=== PATIENT | female | born 1975 | race Caucasian/White ===

== ENCOUNTER 2020-08-02 07:27 | Outpatient (REF) | payer BC, SELFPAY | END 2020-08-02 07:28 | disposition home or self-care (01) | LOC: HO.WFDLDS 07:27 | PROVIDERS: Visit Provider Internal Medicine | DX: Z20.828 Contact with and (suspected) exposure to other viral communicable diseases (principal) | CPT/HCPCS: U0003 ==

== ENCOUNTER 2022-03-08 07:12 | Outpatient (REF) | payer BC, SELFPAY ==
[2022-03-08 11:42] LABS: Hematocrit 39.2 % (37.0-47.0); Hemoglobin 14.1 g/dl (12.0-16.0); Mean Corpuscular Hemoglobin 31.4 pg (27.0-33.0); Mean Corpuscular Volume 87.3 fL (80.0-98.0); Platelet Count 314 X10*3/uL (160-400); Red Blood Count 4.49 X10*6/uL (4.20-5.50); Red Cell Distribution Width 11.9 % (11.0-16.0); White Blood Count 6.1 X10*3/uL (4.8-10.8)
[2022-03-08 12:15] LABS: TSH reflex Free T4 0.98 uIU/mL (0.32-4.0)
[2022-03-08 12:28] LABS: Alanine Aminotransferase 13 U/L (0-31); Albumin Level 4.6 g/dL (3.5-5.0); Alkaline Phosphatase 49 U/L (39-117); Anion Gap 11 (12-20); Aspartate Amino Transferase 16 U/L (5-31); Bilirubin Total 0.8 mg/dL (0.0-1.0); Blood Urea Nitrogen 13 mg/dL (9-16); Carbon Dioxide 23 mmol/L (22-29); Chloride 108 mmol/L (96-108); Cholesterol 158 mg/dL; Estimated Glomerular Filt Rate > 60; Glucose Fasting 92 mg/dL (60-99); HDL Cholesterol 32 mg/dL; LDL Cholesterol Calculated 82 mg/dl; Potassium 3.8 mmol/L (3.3-5.1); Sodium 138 mmol/L (135-145); Total Protein 7.2 g/dL (6.5-8.0); Triglycerides 223 mg/dL
== END 2022-03-08 07:13 | disposition home or self-care (01) ==
LOC: HO.WFDLDS 07:12
PROVIDERS: Visit Provider Hospitalist
DX: Z00.00 Encounter for general adult medical examination without abnormal findings (principal)
CPT/HCPCS: 36415; 80053; 80061; 84443; 85027

== ENCOUNTER 2022-03-15 11:10 | Outpatient (REF) | payer BC, SELFPAY ==
[2022-03-15 13:48] LABS: C Reactive Protein 0.12 mg/dL (< or = 0.50)
[2022-03-15 14:08] LABS: Erythrocyte Sedimentation Rate 3 MM/HR (0-20)
[2022-03-21 14:52] LABS: Endomysial IgA Antibody Negative (Negative)
== END 2022-03-15 11:11 | disposition home or self-care (01) ==
LOC: HO.WFDLDS 11:10
PROVIDERS: Visit Provider Physician Assistant
DX: K52.9 Noninfective gastroenteritis and colitis, unspecified (principal)
CPT/HCPCS: 36415; 85652; 86140; 86231

== ENCOUNTER 2022-03-17 09:19 | Outpatient (REF) | payer BC, SELFPAY ==
[2022-03-17 13:13] LABS: CDiff Gene PCR NEGATIVE (Negative)
[2022-03-24 19:36] LABS: Fecal Fat Qualitative NORMAL (NORMAL)
[2022-03-24 21:56] LABS: Calprotectin, Fecal 47 mcg/g
== END 2022-03-17 09:20 | disposition home or self-care (01) ==
LOC: HO.WFDLNP 09:19
PROVIDERS: Visit Provider Physician Assistant
DX: R10.9 Unspecified abdominal pain (principal); K52.9 Noninfective gastroenteritis and colitis, unspecified
CPT/HCPCS: 82705; 83993; 87177; 87209; 87493

== ENCOUNTER 2022-06-12 11:22 | Outpatient (REF) | payer BC, SELFPAY ==
[2022-06-12 14:12] LABS: Alanine Aminotransferase 17 U/L (0-31); Albumin Level 4.4 g/dL (3.5-5.0); Alkaline Phosphatase 57 U/L (39-117); Amylase 62 U/L (28-100); Aspartate Amino Transferase 17 U/L (5-31); Bilirubin Direct 0.2 mg/dL (0.0-0.5); Bilirubin Total 0.5 mg/dL (0.0-1.0); Lipase 25 U/L (8-78)
== END 2022-06-12 11:23 | disposition home or self-care (01) ==
LOC: HO.WFDLDS 11:22
PROVIDERS: Visit Provider Hospitalist
DX: R10.11 Right upper quadrant pain (principal)
CPT/HCPCS: 36415; 80076; 82150; 83690

== ENCOUNTER 2022-06-19 10:19 | Day surgery (SDC) | payer BC, SELFPAY ==
--- NOTE | 2022-06-16 13:14 | HO.ANESPROP2 ---
HPI - Anesthesia Eval Consult details Narrative: 46yo F for Upper Endoscopy and Colonoscopy PMFSH Active Problems Active Problems: All Active Problems (Updated 06/12/22 @ 10:59 by Joyce Thompson NP) Right upper quadrant abdominal pain (Acute) High triglycerides (Acute) Abdominal pain (Acute) Chronic diarrhea (Acute) Normal physical exam (Acute) Family History Family History Other Mental health disorder Substance abuse Surgical History Surgical History H/O nasal septoplasty Social History Social History Housing: House Patient Tobacco Use Status: Former Tobacco user Quit Date: 10 years ago e-Cigarette/Vaping Use: Never Used Second Hand Smoke Exposure: No Use of substances other than those prescribed or required for medical reasons: No Are you DNR?: No Advance Directives: No Advance Directives Information Provided: Yes Patient : No service: No Current occupational status: employed Current occupational exposures/hazards: No Cognitive needs: No Hearing needs: No Vision needs: No Meds Allergies Allergy/AdvReac Type Severity Reaction Status Date / Time dicyclomine AdvReac Intermediate Blurry Verified 06/12/22 10:48 Vision Exam Exam Date and Time: June 16, 2022 1314 Pertinent Lab Results Pertinent Lab Results: Laboratory Tests 03/08/22 03/08/22 07:20 07:20 WBC 6.1 Hgb 14.1 Hct 39.2 Plt Count 314 Sodium 138 Potassium 3.8 Chloride 108 Carbon Dioxide 23 BUN 13 Creatinine 0.83 Assessment and Plan Assessment Anesthesia Assessment: Chart Reviewed
[2022-06-19 10:23] VITALS: BMI 24.5
[2022-06-19 10:34] VITALS: BP 108/70; PULSE 79; RESP 18; TEMP 36.6; O2SAT 100
--- NOTE | 2022-06-19 10:44 | MHC.SHP ---
Pre-Procedural Eval Section A Date of Service: 06/19/22 The patient is an INPATIENT: No The History & Physical has been completed within 30 days and I have reviewed it.: No Section B Chief Complaint: Noninfective gastroenteritis and colitis, unspecif Details of Present Illness: Colon cancer screening, Chronic diarrhea, nausea Relevant Family History (Specify if Yes): No Relevant Social History: Tobacco Use (Formal smoker) Present Medications: see Short Stay Collaborative assessment Medical History: Significant History (Hypertriglyceridemia, abdominal pain) History of Previous Operations: Relevant previous surgery/procedure and date(s) (H/O nasal septoplasty) Allergies: Allergies Allergy/AdvReac Type Severity Reaction Status Date / Time dicyclomine AdvReac Intermediate Blurry Verified 06/12/22 10:48 Vision Review of Systems Sugical H&P ROS: Negative: Constitution, Cardiovascular and Respiratory and Yes, Specify: Gastrointestinal (Chronic diarrhea) Exam Surgical H&P Exam: Normal: Heart, Normal: Lungs, Normal: Extremities and Normal: Abdomen Plan Diagnosis/Plan: Unchanged I have reviewed the history and physical and performed a pertinent physical examination on my patient. No changes have occurred unless specified.
--- NOTE | 2022-06-19 10:45 | P.BOP_ITS ---
Brief Operative Note Date of Service: 06/19/22 Pre-op diagnosis: Colon cancer screen, abdominal pain, chronic diarrhea, nausea Post-op diagnosis: other (Gastritis, polyp duodenal bulb, colon polyps, diverticulosis, hemorrhoids) Procedure: FLEXIBLE TRANSORAL UPPER GASTROINTESTINAL ENDOSCOPY WITH BIOPSIES AND SNARE POLYPECTOMY AND COLONOSCOPY TILL CECUM WITH BIOPSIES AND SNARE POLYPECTOMY UPPER ENDOSCOPY Consent: Indications for the procedure and potential complications of bleeding, perforation, reaction to medications and missed diagnosis were discussed with the patient and informed consent was obtained. Instrument: Olympus GIF H 190 mid size upper endoscope Monitoring: Vital signs and clinical assessment, continuous EKG monitoring, Pulse oximetry, Carbon Dioxide monitoring and blood pressure monitoring were done throughout the procedure. Procedure: The patient was placed in the left lateral decubitis position and pre-procedure medications were administered and a bite block was placed. The endoscope was inserted into the mouth and advanced under direct vision to the third part of duodenum. A careful inspection was made as the upper endoscope was withdrawn including a retroflexed examination of the proximal stomach; Findings and interventions are described below. Findings: Larynx: Normal Esophagus: GE junction at 36 cms. No esophagitis or Dumont's. Stomach: Moderate diffuse gastric erythema with a few chronic appearing antral erosions. Biopsies were obtained from the gastric body and antrum. Grade 2 flap valve on retroflexed examination of the cardia. Duodenum: A 10 - 12 mm adenomatous appearing polyp in the apex of the bulb - removed with a hot snare. Normal descending duodenum - biopsied to check for celiac sprue. Intervention: Biopsies as noted above COLONOSCOPY PROCEDURE NOTE Consent: Indications for the procedure and potential complications of bleeding, perforation, reaction to medications and missed diagnosis were discussed with the patient and informed consent was obtained. Instrument: Olympus PCF H 190 L variable stiffness pediatric colonoscope Monitoring: Vital signs and clinical assessment, intermittent blood pressure monitoring, continuous EKG monitoring, Pulse oximetry and Carbon Dioxide monitoring were done throughout the procedure. Colon withdrawl time was 20 minutes. Procedure: The patient was placed in the left lateral decubitis position and pre-procedure medications were administered. After a digital rectal examination of the ano-rectum, the video colonoscope was inserted into the rectum and advanced through the colon to the cecum. The colonoscope was slowly withdrawn in a retrograde panoramic fashion and the colon mucosa was carefully examined including a retroflexed view of the rectum. Findings and interventions are described below. Procedure Difficulty: : LLQ pressure applied to intubate the cecum Findings: Terminal Ileum: Multiple attempts to intubate the terminal ileum were unsuccessful Cecum: Normal Ascending Colon: Normal Transverse Colon: Normal Descending Colon: Normal Sigmoid Colon: Moderate diverticulosis Rectum: Two 12 to 15 mm sessile polyps at 10 to 12 cms removed with a hot snare. Ano-rectum: Moderate internal hemorrhoids Colon preparation: Good after copious irrigation and fair in the cecum due to presence of undigested vegetable matter Impression and Post Procedure Diagnosis: Endoscopy Findings: STOMACH: Moderate diffuse gastric erythema with a few chronic appearing antral erosions. Biopsies were obtained from the gastric body and antrum. DUODENUM: A 10 - 12 mm adenomatous appearing polyp in the apex of the bulb - removed with a hot snare. Normal descending duodenum - biopsied to check for celiac sprue. Colonoscopy Findings: Two medium sized polyps removed Moderate diverticulosis seen in the sigmoid colon Moderate hemorrhoids on retroflexed exam. Plan: Await pathology results Patient to schedule a FU appointment in the GI Clinic with MOJGAN Donovan to discuss biopsy results. Repeat Colonoscopy interval based on path results - in 3 years if polyps are adenomatous and 10 years if polyps are hyperplastic. Above findings were reviewed with the patient and Gastritis, colon polyps and diverticulosis handouts were given in the discharge area Surgeon: Ian Ames MD Anesthesia: MAC (Dr Perez) Was an Bar Host/Hostess used for this Procedure?: No Bar Host/Hostess: Delicia Horta Estimated blood loss (mL): 0 Pathology: other (A. small bowel bxs, R/O celiac disease B. duodenal bulb nodule C. gastric antrum bxs, R/O H. pylori D. gastric body bxs E. right colon random bxs, R/O microscopic colitis F. l) Condition: stable Disposition: PACU
[2022-06-19 10:55] LABS: UPreg QC Valid YES; Urine Pregnancy NEGATIVE (NEGATIVE)
--- NOTE | 2022-06-19 10:56 | W.PM.OPN ---
Operative Note Operative Note Date of Service: 06/19/22 Narrative: Pre-op diagnosis: Colon cancer screen, abdominal pain, chronic diarrhea, nausea Post-op diagnosis:?other (Gastritis, polyp duodenal bulb, colon polyps, diverticulosis, hemorrhoids) Procedure: FLEXIBLE TRANSORAL UPPER GASTROINTESTINAL ENDOSCOPY WITH BIOPSIES AND SNARE POLYPECTOMY AND COLONOSCOPY TILL CECUM WITH BIOPSIES AND SNARE POLYPECTOMY UPPER ENDOSCOPY Consent:?Indications for the procedure and potential complications of bleeding, perforation, reaction to medications and missed diagnosis were discussed with the patient and informed consent was obtained. Instrument:?Olympus GIF H 190 mid size upper endoscope Monitoring: Vital signs and clinical assessment, continuous EKG monitoring, Pulse oximetry, Carbon Dioxide monitoring and blood pressure monitoring were done throughout the procedure. Procedure:?The patient was placed in the left lateral decubitis position and pre-procedure medications were administered and a bite block was placed. The endoscope was inserted into the mouth and advanced under direct vision to the third part of duodenum. A careful inspection was made as the upper endoscope was withdrawn including a retroflexed examination of the proximal stomach; Findings and interventions are described below. Findings: Larynx:? Normal Esophagus:?GE junction at 36 cms. No esophagitis or Dumont's. Stomach:?Moderate diffuse gastric erythema with a few chronic appearing antral erosions. Biopsies were obtained from the gastric body and antrum. Grade 2 flap valve on retroflexed examination of the cardia. Duodenum:?A 10 - 12 mm adenomatous appearing polyp in the apex of the bulb - removed with a hot snare. Normal descending duodenum - biopsied to check for celiac sprue. Intervention:?Biopsies as noted above COLONOSCOPY PROCEDURE NOTE Consent:?Indications for the procedure and potential complications of bleeding, perforation, reaction to medications and missed diagnosis were discussed with the patient and informed consent was obtained. Instrument:?Olympus PCF H 190 L variable stiffness pediatric colonoscope Monitoring:?Vital signs and clinical assessment, intermittent blood pressure monitoring, continuous EKG monitoring, Pulse oximetry and Carbon Dioxide monitoring were done throughout the procedure. Colon withdrawl time was 20 minutes. Procedure:?The patient was placed in the left lateral decubitis position and pre-procedure medications were administered. After a digital rectal examination of the ano-rectum, the video colonoscope was inserted into the rectum and advanced through the colon to the cecum. The colonoscope was slowly withdrawn in a retrograde panoramic fashion and the colon mucosa was carefully examined including a retroflexed view of the rectum. Findings and interventions are described below. Procedure Difficulty:?:? LLQ pressure applied to intubate the cecum Findings: Terminal Ileum:? Multiple attempts to intubate the terminal ileum were unsuccessful Cecum:? Normal Ascending Colon:??Normal Transverse Colon:??Normal Descending Colon:? Normal Sigmoid Colon:??Moderate diverticulosis Rectum:??Two 12 to 15 mm sessile polyps at 10 to 12 cms removed with a hot snare. Ano-rectum:??Moderate internal hemorrhoids Colon preparation:? Good after copious irrigation and fair in the cecum due to presence of undigested vegetable matter Impression and Post Procedure Diagnosis: Endoscopy Findings: STOMACH: Moderate diffuse gastric erythema with a few chronic appearing antral erosions. Biopsies were obtained from the gastric body and antrum.? DUODENUM: A 10 - 12 mm adenomatous appearing polyp in the apex of the bulb - removed with a hot snare. Normal descending duodenum - biopsied to check for celiac sprue. Colonoscopy Findings: Two medium sized polyps removed Moderate diverticulosis seen in the sigmoid colon Moderate hemorrhoids on retroflexed exam. Plan: Await pathology results Patient to schedule a FU appointment in the GI Clinic with MOJGAN Donovan to discuss biopsy results. Repeat Colonoscopy interval based on path results - in 3 years if polyps are adenomatous and 10 years if polyps are hyperplastic. Above findings were reviewed with the patient and Gastritis, colon polyps and diverticulosis handouts were given in the discharge area Surgeon: Ian Ames MD Anesthesia:?MAC (Dr Perez) Was an [employer] used for this Procedure?:?No [employer]:?Delicia Horta Estimated blood loss (mL):?0 Pathology:?other (A. small bowel bxs, R/O celiac disease? B. duodenal bulb nodule? C. gastric antrum bxs, R/O H. pylori? D. gastric body bxs? E. right colon random bxs, R/O microscopic colitis? F. l) Condition:?stable Disposition:?PACU
[2022-06-19] MEDS: Lactated Ringers 1,000 ML 100 ML IVCONT (11:00)
--- NOTE | 2022-06-19 11:11 | P.CONAN_ITS ---
REPLACED BY [facility] Active Problems Active Problems: All Active Problems (Updated 06/12/22 @ 10:59 by Joyce Thompson NP) Right upper quadrant abdominal pain (Acute) High triglycerides (Acute) Abdominal pain (Acute) Chronic diarrhea (Acute) Normal physical exam (Acute) Past Medical History Functional capacity: independent ambulation Patient : No Family History Family History Other Mental health disorder Substance abuse Family history of problems with anesthesia: No Surgical History Surgical History H/O nasal septoplasty Social History Social History Housing: House Patient Tobacco Use Status: Former Tobacco user Quit Date: 10 years ago e-Cigarette/Vaping Use: Never Used Second Hand Smoke Exposure: No Use of substances other than those prescribed or required for medical reasons: No Are you DNR?: No Advance Directives: No Advance Directives Information Provided: Yes service: No Current occupational status: employed Current occupational exposures/hazards: No Cognitive needs: No Hearing needs: No Vision needs: No Meds Allergies Allergy/AdvReac Type Severity Reaction Status Date / Time dicyclomine AdvReac Intermediate Blurry Verified 06/12/22 10:48 Vision Active Medications: Current Medications Lactated Ringer's (Lr) 1,000 mls @ 100 mls/hr IVCONT .Q10H CHENG Last Admin: 06/19/22 11:00 Dose: 100 mls/hr Exam Exam Date and Time: June 19, 2022 1111 Height,Weight and Vital Signs: Height 5 ft 2 in Weight 60.781 kg Last Vital Signs Temp 97.8 F 06/19/22 10:34 Pulse 79 06/19/22 10:34 Resp 18 06/19/22 10:34 BP 108/70 06/19/22 10:34 Pulse Ox 100 06/19/22 10:34 O2 Del Method 06/19/22 10:34 Pertinent Lab Results Pertinent Lab Results: Laboratory Tests 06/19/22 10:15 Urine Test NEGATIVE Assessment and Plan Final Anesthetic Review Family History of Problems with Anesthesia: No ASA Class: II Final Preanesthetic Review: No Changes in Pt Med Stat, Meds/Allgs Chart Reviewed, Consent Obtained/Reviewed and Anes Risks/Benef Reviewed Patient Risk: Low Procedure Risk: Low Anesthetic Plan Anesthetic Plan: MAC: Disposition: Standard PACU
[2022-06-19 12:15] VITALS: BP 75/47; PULSE 69; RESP 16; TEMP 36.3; O2SAT 100
[2022-06-19 12:30] VITALS: BP 91/58; PULSE 64; RESP 16; O2SAT 100
[2022-06-19 12:45] VITALS: BP 108/69; PULSE 57; RESP 16; TEMP 36.2; O2SAT 100
--- NOTE | 2022-06-19 13:17 | HO.POSTANES ---
Post Anesthesia Evaluation Post Anesthesia Evaluation Vital Signs: Vital Signs Temp Pulse Resp BP Pulse Ox O2 Del Method 06/19/22 12:45 97.1 F 57 16 108/69 100 Room Air 06/19/22 12:30 64 16 91/58 L 100 Room Air 06/19/22 12:15 97.3 F 69 16 75/47 L 100 Room Air 06/19/22 10:34 97.8 F 79 18 108/70 100 Room Air Anesthesia: Monitored Mental Status: Awake Pain Control: Satisfactory Nausea/Vomiting: None Hydration: Adequate Anesthesia-Related Issues: No Anes. Related Issues
== END 2022-06-19 13:40 | disposition home or self-care (01) ==
PROVIDERS: Nurse Practitioner; PCP Hospitalist; Visit Provider Internal Medicine Gastroenterology
PROC: (CPT 45385; principal; 2022-06-19 12:50)
DX: Z12.11 Encounter for screening for malignant neoplasm of colon (principal); K52.9 Noninfective gastroenteritis and colitis, unspecified; D12.8 Benign neoplasm of rectum; K57.30 Diverticulosis of large intestine without perforation or abscess without bleeding; K64.8 Other hemorrhoids; K29.80 Duodenitis without bleeding; K29.50 Unspecified chronic gastritis without bleeding; K31.7 Polyp of stomach and duodenum; Z88.8 Allergy status to other drugs, medicaments and biological substances
CPT/HCPCS: 45385; 45380; 43251; 43239; 81025; 88305; 88342

== ENCOUNTER 2022-08-03 11:15 | Outpatient (REF) | payer BC, SELFPAY ==
[2022-08-03 12:01] LABS: Influenza A PCR NEGATIVE (Negative); Influenza B PCR NEGATIVE (Negative); Resp Syncy Virus RNA Qual PCR NEGATIVE (Negative); SARS COV2 PCR INHOUSE NEGATIVE (Negative)
== END 2022-08-03 11:16 | disposition home or self-care (01) ==
LOC: HO.LAB 11:15
PROVIDERS: Visit Provider Nurse Practitioner Family
DX: J06.9 Acute upper respiratory infection, unspecified (principal); Z20.822 Contact with and (suspected) exposure to COVID-19
CPT/HCPCS: 0241U

== ENCOUNTER 2023-04-11 10:37 | Outpatient (AMB) | payer BC, SELFPAY ==
--- NOTE | 2023-04-11 10:40 | A.OFFPC_ITS ---
Vital Signs 04/11/23 10:41 Height 5 ft 2 in Weight 145 lb 6 oz BMI 26.6 BP 98/66 Blood Pressure Location Lt brachial Position Sitting Pulse 83 Pulse Source Pulse Oximeter Temp 98.3 F Temp Source Temporal Artery Scan Pulse Oximetry (%) 99 Oxygen Delivery Method Room Air Intake Visit Reasons: Physical exam Intake Note: Patient present today for a complete physical exam. Patient has a past medical history of chronic diarrhea and anxiety. Patient would like a referral for right hip pain, locking and popping. Patient reports bilateral knee has crunching sounds and she reports bilateral knee's will sometimes buckle. Patient has questions regarding the paxil she was prescribed recently. Lip Cutter Required: No Accompanied by: Self / Same As Patient Allergies dicyclomine Adverse Reaction (Intermediate, Verified 04/11/23 10:40) Blurry Vision Tobacco use date assessed: 04/11/23 Dental Screening Dental Screen Date: 04/11/23 Did you have a dental visit in the last 12 months?: Yes Did you have a dental problem in the last 6 months where you did not have access to dental care?: No Was dental information given to patient?: Patient has dentist HPI HPI Comments History of Present Illness Details 47-year-old female presents for a complete physical exam. She reports intermittent right hip pain. She notes her right hip has locking and popping sound and the hip sometimes buckle. Her right hip symptoms have been ongoing for the past 6 months. She reports crunching sounds to her bilateral knee and states her right knee sometimes buckle. Her knee symptoms have been ongoing for over a year. She requests a referral for pain symptoms. She reports controlled depression symptoms on Paxil. However, she states her anxiety is not totally controlled. [facility] Surgical History H/O nasal septoplasty History of esophagogastroduodenoscopy (EGD) Hx of colonoscopy Family History Other Mental health disorder Substance abuse Social History Housing: House Patient Tobacco Use Status: Former Tobacco user Quit Date: 10 years ago e-Cigarette/Vaping Use: Never Used Second Hand Smoke Exposure: No service: No Current occupational status: employed Current occupational exposures/hazards: No Cognitive needs: No Hearing needs: No Vision needs: No Questionnaire PHQ-9 Over the last 2 weeks, how often have you been bothered by any of the following problems? 1. Little interest or pleasure in doing things: not at all 2. Feeling down, depressed, or hopeless: not at all 3. Trouble falling or staying asleep, or sleeping too much: nearly every day 4. Feeling tired or having little energy: several days 5. Poor appetite or overeating: not at all 6. Feeling bad about yourself - or that you are a failure or have let yourself or your family down: not at all 7. Trouble concentrating on things, such as reading the newspaper or watching television: not at all 8. Moving or speaking so slowly that other people could have noticed. Or the opposite - being so fidgety or restless that you have been moving around a lot more than usual: not at all 9. Thoughts that you would be better off or of hurting yourself in some way: not at all Total score: 4 Depression Screening Interpretation: Negative [id number] - PHQ-9 Billing: Yes Source: Developed by Drs. Dami Tovar, Janelle Perales, Rinku De Paz and colleagues, with an educational rené from [employer]. CATY-7 AMB Questionnaire CATY-7 Date CATY - 7 assessed: 03/07/22 Feeling nervous, anxious, or on edge: 2 = More than half the days Not being able to stop or control worryin = More than half the days Worrying too much about different things: 2 = More than half the days Trouble relaxin = More than half the days Being so restless that it is hard to sit still: 0 = Not at all Becoming easily annoyed or irritable: 2 = More than half the days Feeling afraid as if something awful might happen: 1 = Several days Total CATY-7 score (0-4 normal; 5-9 mild; 10-14 moderate; 15-21 severe): 11 Source: Developed by Drs. Dami Tovar, Rinku Crystal and colleagues, with an educational rené from [employer]. CATY-7 Assessment Billing CATY-7 Assessment Tool: CATY-7 Assessment 66480 Review of Systems Const Details: Denies chills, Denies fatigue, Denies fever(s), Denies headache(s) and Denies weakness HEENT Denies change in vision, Denies dizziness, Denies headache(s), Denies hearing loss, Denies nasal congestion, Denies sinus pain, Denies sinus pressure and Denies sore throat Card Denies chest pain, Denies lightheadedness, Denies dyspnea and Denies other (palpitations) Resp Denies cough, Denies dyspnea and Denies wheezing GI Denies abdominal pain, Denies melena, Denies hematochezia, Denies change in bowel habits, Denies dyspepsia and Denies nausea Denies hematuria and Denies dysuria Musc Denies abnormal gait, Denies myalgias, Denies arthralgias, Denies numbness and Denies tingling Skin/Breast Denies rash, Denies unusual bruising and Denies wounds Neuro Denies abnormal gait, Denies dizziness, Denies headache(s), Denies memory loss, Denies numbness, Denies Sensory deficit (Neuro), Denies tingling and Denies weakness Psych Reports anxiety, Denies depression and Denies memory loss Endo Denies cold intolerance, Denies fatigue, Denies heat intolerance, Denies polydipsia and Denies polyuria Juan Manuel/Lymph Denies easy bleeding and Denies easy bruising Aller/Immun Denies wheezing Physical exam (Primary Care) Vital Signs: Last Vital Signs Temp 98.3 F 04/11/23 10:41 Pulse 83 04/11/23 10:41 BP 98/66 04/11/23 10:41 Pulse Ox 99 04/11/23 10:41 Oxygen Delivery Method Room Air 04/11/23 10:41 BMI result Body Mass Index 26.6 Tobacco/Smoking Status: Tobacco use Status Tobacco use date assessed 04/11/23 04/11/23 10:41 Patient Tobacco Use Status Former Tobacco user 04/11/23 10:41 e-Cigarette/Vaping Use Never Used 04/11/23 10:41 PHQ-9: PHQ-9 Score PHQ-9: Total score 4 04/11/23 11:53 Depression Screening Interpretation: Negative Const Other: General: no acute distress, well developed, alert and awake Nutritional Appearance: well nourished Orientation/consciousness: patient oriented x3 HENMT Head: Yes normocephalic and Yes atraumatic Ears: hearing grossly normal bilaterally and TM's normal bilaterally General nose exam: Normal external nose present and Normal nares present Mouth: Normal oral and palatal mucosa present and moist mucous membranes Teeth and gingiva: dentition normal Throat: Yes oropharynx normal Eyes Pupils: Equal, round and reactive pupils present and Pupil accommodation reflex normal EOM: EOMs intact bilaterally Neck Neck: Yes normal visual inspection, Yes no lymphadenopathy and Yes trachea midline Thyroid: Thyroid normal Carotids: no bruits Lymphatic: no lymphadenopathy noted Chest Chest palpation & inspection: normal inspection of the chest Resp Effort & Inspection: normal respiratory effort Auscultation: clear to auscultation bilaterally Cardio Rate: regular rate Rhythm: regular rhythm Heart sounds: S1 normal heart sound present, S2 normal heart sound present, no gallops, no murmurs and no rubs Bruits: no abdominal aortic bruits and no carotid bruits GI Palpation (GI): No Abdominal aortic bruit present, Soft to palpation, nontender, No hepatosplenomegaly present and No Rebound tenderness present Auscultation: normal bowel sounds General: Yes no CVA tenderness Back/Spine/Pelvis Back: no CVA tenderness Cervical Spine: cervical ROM normal and No Cervical spine tenderness Thoracic/Lumbar Spine: thoraco-lumbar ROM normal, No pain with thoraco-lumbar ROM, No thoracic spinal tenderness and No lumbar spinal tenderness Skin General: warm and dry. Normal skin color. Normal skin turgor Lesions: no lesions Rashes: no rashes Trauma: no lacerations or abrasions Wounds: no wounds Nails: normal Neuro General: patient oriented x3, gait normal and CN's II-XI intact bilaterally Cranial nerves: Yes Equal, round and reactive pupils present Cognition (Neuro): normal cognition Gait exam (Neuro): Normal gait present Motor exam (neuro): 5/5 motor strength present throughout Sensory Exam: No Sensory deficit (Neuro) Deep tendon reflexes (DTR's): Right patellar reflex intensity grade: 2+ and Left patellar reflex intensity grade: 2+ Extrem General: Yes normal to inspection, No edema and No calf tenderness Psych Appearance: grossly normal Affect: normal affect Attitude: cooperative Thought process: Normal thought process present Assessment and Plan Assessment & Plan (1) Normal physical examination, routine: Code(s): Z00.00 - Encounter for general adult medical examination without abnormal f indings Plan: No significant physical restrictions or limitations noted Encouraged to get outstanding fasting blood work done Verbalized understanding and agreed with the plan. (2) Anxiety and depression: Code(s): F41.9 - Anxiety disorder, unspecified; F32.A - Depression, unspecified Plan: Reports controlled depression symptoms on Paxil. However, she states her anxiety is not totally controlled. PHQ-9 score is normal; CATY-7 score revealed moderate anxiety Hydroxyzine ordered. Take as prescribed Continue to take paroxetine as prescribed Routine exercise encouraged Follow-up with PCP in 3 months or return sooner with worsening or new symptoms Verbalized understanding and agreed with treatment plan. (3) Chronic right hip pain: Code(s): M25.551 - Pain in right hip; G89.29 - Other chronic pain Plan: She reports intermittent right hip pain. She notes her right hip has locking and popping sound and the hip sometimes buckle. Her right hip symptoms have been ongoing for the past 6 months. x-ray ordered Referred to PT May take ibuprofen or Tylenol for pain or discomfort Warm/cold compresses encouraged Follow-up with worsening or new symptoms Verbalized understanding and agreed with treatment plan. (4) Knee buckling: Code(s): M25.369 - Other instability, unspecified knee Plan: Reports crunching sounds to her bilateral knee and states her right knee sometimes buckle. Her knee symptoms have been ongoing for over a year. Plan as above Orders: Orders XR hip RT w PEL1V Today G89.29 - Other chronic pain, M25.551 - Pain in right hip XR knee LT 2V Today M25.369 - Other instability, unspecified knee XR knee RT 2V Today M25.369 - Other instability, unspecified knee PT Evaluation and Treatment Today G89.29 - Other chronic pain, M25.369 - Other instability, unspecified knee, M25.551 - Pain in right hip Medications: New hydroxyzine HCl 25 mg PO BID PRN 60 tabs 2RF anxiety Coding Level of Care Code Est Pt Level 3 (11448) Est Pt Prev Care 40-64y(49944) Diagnoses Normal physical examination, routine Z00.00 Anxiety and depression F41.9; F32.A Chronic right hip pain M25.551; G89.29 Knee buckling M25.369 Additional Codes CATY-7 Assessment Billing - CATY-7 Assessment Tool: CATY-7 Assessment 71806 ([id number])
[2023-04-11 10:41] VITALS: BP 98/66; PULSE 83; TEMP 36.8; O2SAT 99; BMI 26.6
== END 2023-04-11 11:44 | disposition home or self-care (01) ==
PROVIDERS: PCP Hospitalist; Visit Provider Nurse Practitioner Family
DX: Z00.00 Encounter for general adult medical examination without abnormal findings (principal); F41.9 Anxiety disorder, unspecified; F32.A Depression, unspecified; M25.551 Pain in right hip; G89.29 Other chronic pain; M25.361 Other instability, right knee; M25.362 Other instability, left knee
CPT/HCPCS: 99396

== ENCOUNTER 2023-08-17 11:13 | Outpatient (AMB) | payer BC, SELFPAY ==
[2023-08-17 11:18] VITALS: BP 112/70; PULSE 91; RESP 13; TEMP 36.2; BMI 27.0
--- NOTE | 2023-08-17 11:18 | MHC.PC.OV ---
Vital Signs 08/17/23 11:18 Height 5 ft 2 in Weight 147 lb 8 oz BMI 27.0 BP 112/70 Blood Pressure Location Rt brachial Position Sitting Respiration 13 Pulse 91 Pulse Source Pulse Oximeter Temp 97.2 F Temp Source Temporal Artery Scan Intake Visit Reasons: SV Medication Follow Up Intake Note: Patient is following up on her fiber and hydroxyzine. Television Mechanic Required: No Accompanied by: Self / Same As Patient Allergies dicyclomine Adverse Reaction (Intermediate, Verified 08/17/23 11:33) Blurry Vision Medication List - Last Reconciled 08/17/23 by Fiona Aquino CNP calcium polycarbophil (FiberCon) 625 mg PO DAILY 30 days fenofibrate nanocrystallized 48 mg PO DAILY 90 days hydroxyzine HCl 25 mg PO BID PRN loperamide (Imodium A-D) 2 mg orally PRN; Take 2 cap after 1st loose stool- One caplet after each subsequent loose stool No more than 4 caps in a 24 hour. norethindrone ac-eth estradiol 1-20 mg-mcg (Junel) 1 tab PO DAILY omeprazole 20 mg PO DAILY paroxetine HCl (Paxil) 10 mg PO DAILY 30 days Tobacco use date assessed: 04/11/23 Dental Screening Dental Screen Date: 08/17/23 Did you have a dental visit in the last 12 months?: Yes Did you have a dental problem in the last 6 months where you did not have access to dental care?: No Was dental information given to patient?: Patient has dentist HPI HPI Comments History of Present Illness Details 47-year-old female presents for anxiety and depression follow-up She is on hydroxyzine and paroxetine which she admits to taking as prescribed with no adverse reaction. She notes that her anxiety symptoms are somewhat improved on Hydroxyzine. She attributes her anxiety symptoms to work and school stress She notes that she is currently followed by [facility] for her musculoskeletal issues [facility] Medical History (Updated 08/17/23 @ 11:24 by Mariah Tuttle MA) No pertinent past medical history Surgical History History of esophagogastroduodenoscopy (EGD) Hx of colonoscopy H/O nasal septoplasty Family History Other Mental health disorder Substance abuse Social History Housing: House Patient Tobacco Use Status: Former Tobacco user Quit Date: 10 years ago e-Cigarette/Vaping Use: Never Used Second Hand Smoke Exposure: No service: No Current occupational status: employed 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 1. Little interest or pleasure in doing things: not at all 2. Feeling down, depressed, or hopeless: not at all 3. Trouble falling or staying asleep, or sleeping too much: more than half the days 4. Feeling tired or having little energy: not at all 5. Poor appetite or overeating: not at all 6. Feeling bad about yourself - or that you are a failure or have let yourself or your family down: several days 7. Trouble concentrating on things, such as reading the newspaper or watching television: not at all 8. Moving or speaking so slowly that other people could have noticed. Or the opposite - being so fidgety or restless that you have been moving around a lot more than usual: not at all 9. Thoughts that you would be better off or of hurting yourself in some way: not at all Total score: 3 Depression Screening Interpretation: Negative Depression Screening Done: Yes [id number] - PHQ-9 Billing: Yes Source: Developed by Drs. Dami Tovar, Janelle Perales, Rinku De Paz and colleagues, with an educational rené from [employer]. Thrive Questionnaire Date Thrive assessed: 08/17/23 I am a: Patient What is your living situation today?: I have a steady place to live Within the past 12 months, did the food you bought not last and you didn't have the money to get more?: Never true Within the past 12 months, did you worry whether your food would run out before you got money to buy more?: Never true Do you have trouble paying for medicines?: No Do you have trouble getting transportation to medical appointments?: No Do you have trouble paying your heating and electricity bill?: No Do you have trouble taking care of your child, family member or friend?: No Do you have trouble with day-to-day activities such as bathing, preparing meals, shopping, managing finances, etc.?: No Are you currently unemployed and looking for a job?: No Are you interested in more education?: Yes Please select the resources that you would like help with: None Currently or been in a relationship where the following occur: no concerns reported AUDIT C Alcohol Use Questionnaire (AUDIT-C) 1. How often do you have a drink containing alcohol?: Never 3. How often do you have six or more drinks on one occasion?: Never Total Score: 0 CATY-7 AMB Questionnaire CATY-7 Date CATY - 7 assessed: 08/17/23 Feeling nervous, anxious, or on edge: 2 = More than half the days Not being able to stop or control worryin = More than half the days Worrying too much about different things: 2 = More than half the days Trouble relaxin = More than half the days Being so restless that it is hard to sit still: 0 = Not at all Becoming easily annoyed or irritable: 2 = More than half the days Feeling afraid as if something awful might happen: 0 = Not at all Total CATY-7 score (0-4 normal; 5-9 mild; 10-14 moderate; 15-21 severe): 10 Source: Developed by Drs. Dami Tovar, Janelle Perales, Rinku De Paz and colleagues, with an educational rené from [employer]. CATY-7 Assessment Billing CATY-7 Assessment Tool: CATY-7 Assessment 02808 Review of Systems Const Details: Const Denies chills, Denies fatigue, Denies fever(s), Denies headache(s) and Denies weakness ENT Denies dizziness and Denies headache(s) Card Denies chest pain, Denies lightheadedness, Denies dyspnea and Denies other (Palpitations) Resp Denies cough, Denies dyspnea, Denies wheezing and Denies other ( shortness of breath) GI Denies abdominal pain, Denies melena, Denies hematochezia, Denies change in bowel habits, Denies dyspepsia and Denies nausea Denies hematuria and Denies dysuria Musc Denies abnormal gait, Denies myalgias, Denies arthralgias, Denies numbness and Denies tingling Skin/Breast Denies rash, Denies unusual bruising and Denies wounds Neuro Denies abnormal gait, Denies dizziness, Denies headache(s), Denies memory loss, Denies numbness, Denies Sensory deficit (Neuro), Denies tingling and Denies weakness Psych Reports anxiety, Denies depression, Denies memory loss Endo Denies cold intolerance, Denies fatigue, Denies heat intolerance, Denies polydipsia and Denies polyuria Aller/Immun Denies wheezing Physical exam (Primary Care) Vital Signs: Last Vital Signs Temp 97.2 F 08/17/23 11:18 Pulse 91 08/17/23 11:18 Resp 13 08/17/23 11:18 BP 112/70 08/17/23 11:18 BMI result Body Mass Index 27.0 Tobacco/Smoking Status: Tobacco use Status Tobacco use date assessed 04/11/23 08/17/23 11:27 Patient Tobacco Use Status Former Tobacco user 08/17/23 11:27 e-Cigarette/Vaping Use Never Used 08/17/23 11:27 PHQ-9: PHQ-9 Score PHQ-9: Total score 3 08/17/23 11:27 Depression Screening Interpretation: Negative Thrive Assessment: Date of Thrive Assessment Date Thrive assessed 08/17/23 08/17/23 11:27 Currently or been in a relationship where the following occur: no concerns reported Const Other: General: no acute distress and well developed Nutritional Appearance: well nourished Orientation/consciousness: patient oriented x3 HENMT Head: Yes normocephalic and Yes atraumatic Eyes General: appearance normal, both eyes and all related structures Pupils: Equal, round and reactive pupils present EOM: EOMs intact bilaterally Resp Effort & Inspection: normal respiratory effort Auscultation: clear to auscultation bilaterally Cardio Rate: regular rate Rhythm: regular rhythm Heart sounds: S1 normal heart sound present, S2 normal heart sound present, no gallops, no murmurs and no rubs GI Palpation (GI): No Abdominal aortic bruit present, Soft to palpation, nontender, No hepatosplenomegaly present and No Rebound tenderness present Auscultation: normal bowel sounds General: Yes no CVA tenderness Back/Spine/Pelvis Back: no CVA tenderness Cervical Spine: cervical ROM normal and No Cervical spine tenderness Thoracic/Lumbar Spine: thoraco-lumbar ROM normal, No pain with thoraco-lumbar ROM, No thoracic spinal tenderness and No lumbar spinal tenderness Extrem General: Yes normal to inspection, No edema and No calf tenderness Skin General: warm and dry. Normal skin color. Normal skin turgor Neuro General: patient oriented x3, gait normal and no focal neuro deficit Cranial nerves: Yes Equal, round and reactive pupils present Cognition (Neuro): normal cognition Gait exam (Neuro): Normal gait present Sensory Exam: No Sensory deficit (Neuro) Psych Appearance: grossly normal Affect: normal affect Attitude: cooperative Thought process: Normal thought process present Assessment and Plan Assessment & Plan (1) Anxiety and depression: Code(s): F41.9 - Anxiety disorder, unspecified; F32.A - Depression, unspecified Plan: Reports significant stress from work and school CATY-7 score reveals moderate anxiety. PHQ-9 score is normal Hydroxyzine increased to 25 mg 3 times daily as needed. Take as prescribed Continue to take paroxetine as prescribed Routine exercise and deep breathing/relaxation techniques encouraged Encouraged to get routine fasting blood work done before her next visit Follow-up in 2 months or return sooner with worsening or new symptoms Verbalized understanding and agreed with treatment plan Orders: Orders Lipid Panel Today Z00.00 - Encounter for general adult medical examination without abnormal findings TSH reflex Free T4 Today Z00.00 - Encounter for general adult medical examination without abnormal findings Medications: Changed From hydroxyzine HCl 25 mg PO BID PRN 60 tabs 2RF anxiety To hydroxyzine HCl 25 mg PO TID PRN 60 tabs 3RF anxiety Refilled calcium polycarbophil (FiberCon) 625 mg PO DAILY 30 days 30 tabs 2RF Coding Level of Care Code Est Pt Level 3 (31702) Diagnoses Anxiety and depression F41.9; F32.A Additional Codes CATY-7 Assessment Billing - CATY-7 Assessment Tool: CATY-7 Assessment 45325 ([id number])
== END 2023-08-17 11:47 | disposition home or self-care (01) ==
PROVIDERS: PCP Hospitalist; Visit Provider Nurse Practitioner Family
DX: F41.9 Anxiety disorder, unspecified (principal); F32.A Depression, unspecified
CPT/HCPCS: 99213

== ENCOUNTER 2023-10-15 08:13 | Outpatient (REF) | payer BC, SELFPAY ==
[2023-10-15 11:25] LABS: MANUAL DIFF FLAG NO
[2023-10-15 12:24] LABS: Basophils Percent Auto 0.3 % (0-2); Eosinophils Absolute Auto 0.1 X10*3/uL (0.0-0.4); Eosinophils Percent Auto 2.2 % (0-4); Hematocrit 34.2 % (37.0-47.0); Hemoglobin 12.3 g/dl (12.0-16.0); Imm Gran Abs Auto 0.04 X10*3/uL (0.00-0.03); Imm Gran Pct Auto 0.6 % (0.0-0.4); Lymphocytes Absolute Auto 1.6 X10*3/uL (1.2-4.9); Lymphocytes Percent Auto 25.5 % (20-40); Mean Corpuscular Hemoglobin 30.4 pg (27.0-33.0); Mean Corpuscular Volume 84.4 fL (80.0-98.0); Mean Platelet Volume 9.9 fL (9.4-12.3); Monocytes Absolute Auto 0.6 X10*3/uL (0.1-1.2); Monocytes Percent Auto 9.1 % (2-11); Neutrophils Absolute Auto 3.9 x10*3/uL (2.0-8.3); Neutrophils Percent Auto 62.3 % (45-73); Platelet Count 408 X10*3/uL (160-400); Red Blood Count 4.05 X10*6/uL (4.20-5.50); Red Cell Distribution Width 12.3 % (11.0-16.0); White Blood Count 6.3 X10*3/uL (4.8-10.8)
[2023-10-15 13:11] LABS: Alanine Aminotransferase 18 U/L (0-31); Alkaline Phosphatase 51 U/L (39-117); Anion Gap 12 (12-20); Aspartate Amino Transferase 18 U/L (5-31); Bilirubin Total 0.3 mg/dL (0.0-1.0); Blood Urea Nitrogen 16 mg/dL (9-16); Calcium 9.1 mg/dL (8.4-10.2); Carbon Dioxide 22 mmol/L (22-29); Chloride 110 mmol/L (96-108); Cholesterol 140 mg/dL (<200); Estimated Glomerular Filt Rate > 60; Glucose Random 99 mg/dL (60-115); HDL Cholesterol 34 mg/dL (>40); LDL Cholesterol Calculated 75 mg/dL (<100); Magnesium 2.3 mg/dL (1.6-2.6); Potassium 3.8 mmol/L (3.3-5.1); Sodium 140 mmol/L (135-145); Total Protein 6.8 g/dL (6.5-8.0); Triglycerides 155 mg/dL (<150)
== END 2023-10-15 08:14 | disposition home or self-care (01) ==
LOC: HO.WFDLDS 08:13
PROVIDERS: Family Medicine; Visit Provider Nurse Practitioner Family
DX: Z00.00 Encounter for general adult medical examination without abnormal findings (principal); K52.9 Noninfective gastroenteritis and colitis, unspecified
CPT/HCPCS: 36415; 80053; 80061; 83735; 84443; 85025

== ENCOUNTER 2023-10-15 16:56 | Outpatient (AMB) | payer BC, SELFPAY ==
--- NOTE | 2023-10-15 16:57 | MHC.PC.OV ---
Vital Signs 10/15/23 16:58 Height 5 ft 2 in Weight 150 lb BMI 27.4 BP 108/70 Blood Pressure Location Rt brachial Position Sitting Respiration 13 Pulse 82 Pulse Source Pulse Oximeter Temp 97.9 F Temp Source Temporal Artery Scan Pulse Oximetry (%) 99 Oxygen Delivery Method Room Air Intake Visit Reasons: 2 mos anxiety, depression, labs review Track Superintendent Required: No Accompanied by: Self / Same As Patient Allergies dicyclomine Adverse Reaction (Intermediate, Verified 10/15/23 17:05) Blurry Vision Medication List - Last Reconciled 10/15/23 by Fiona Aquino CNP calcium polycarbophil (FiberCon) 625 mg PO DAILY 30 days fenofibrate nanocrystallized 48 mg PO DAILY 90 days hydroxyzine HCl 25 mg PO TID PRN loperamide (Imodium A-D) 2 mg orally PRN; Take 2 cap after 1st loose stool- One caplet after each subsequent loose stool No more than 4 caps in a 24 hour. meloxicam 7.5 mg PO DAILY norethindrone ac-eth estradiol 1-20 mg-mcg (Junel) 1 tab PO DAILY omeprazole 20 mg PO DAILY paroxetine HCl (Paxil) 10 mg PO DAILY 30 days Tobacco use date assessed: 10/15/23 Dental Screening Dental Screen Date: 10/15/23 Did you have a dental visit in the last 12 months?: Yes Did you have a dental problem in the last 6 months where you did not have access to dental care?: No Was dental information given to patient?: Patient has dentist HPI HPI Comments History of Present Illness Details 48-year-old female presents for anxiety, depression, and review of recent blood work follow-up She admits to taking her medications as prescribed without adverse reactions She reports controlled anxiety and depression symptoms. 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 1. Little interest or pleasure in doing things: not at all 2. Feeling down, depressed, or hopeless: not at all 3. Trouble falling or staying asleep, or sleeping too much: nearly every day 4. Feeling tired or having little energy: nearly every day 5. Poor appetite or overeating: nearly every day 6. Feeling bad about yourself - or that you are a failure or have let yourself or your family down: nearly every day 7. Trouble concentrating on things, such as reading the newspaper or watching television: not at all 8. Moving or speaking so slowly that other people could have noticed. Or the opposite - being so fidgety or restless that you have been moving around a lot more than usual: not at all 9. Thoughts that you would be better off or of hurting yourself in some way: not at all Total score: 12 Depression Screening Interpretation: Positive Depression Screening Follow-up: Existing condition and In treatment Depression Screening Done: Yes 16659 - PHQ-9 Billing: Yes Source: Developed by Drs. Dami Tovar, Janelle Perales, Rinku De Paz and colleagues, with an educational rené from [employer]. Thrive Questionnaire Date Thrive assessed: 08/17/23 CATY-7 AMB Questionnaire CATY-7 Date CATY - 7 assessed: 10/15/23 Feeling nervous, anxious, or on edge: 2 = More than half the days Not being able to stop or control worryin = Nearly every day Worrying too much about different things: 3 = Nearly every day Trouble relaxin = Nearly every day Being so restless that it is hard to sit still: 0 = Not at all Becoming easily annoyed or irritable: 2 = More than half the days Feeling afraid as if something awful might happen: 0 = Not at all Total CATY-7 score (0-4 normal; 5-9 mild; 10-14 moderate; 15-21 severe): 13 Source: Developed by Drs. Dami Tovar, Janelle Perales, Rinku De Paz and colleagues, with an educational rené from [employer]. CATY-7 Assessment Billing CATY-7 Assessment Tool: CATY-7 Assessment 67714 Review of Systems Const Details: Const Denies chills, Denies fatigue, Denies fever(s), Denies headache(s) and Denies weakness ENT Denies dizziness and Denies headache(s) Card Denies chest pain, Denies lightheadedness, Denies dyspnea and Denies other (Palpitations) Resp Denies cough, Denies dyspnea, Denies wheezing and Denies other ( shortness of breath) GI Denies abdominal pain, Denies melena, Denies hematochezia, Denies change in bowel habits, Denies dyspepsia and Denies nausea Denies hematuria and Denies dysuria Musc Denies abnormal gait, Denies myalgias, Denies arthralgias, Denies numbness and Denies tingling Skin/Breast Denies rash, Denies unusual bruising and Denies wounds Neuro Denies abnormal gait, Denies dizziness, Denies headache(s), Denies memory loss, Denies numbness, Denies Sensory deficit (Neuro), Denies tingling and Denies weakness Psych Denies anxiety, Denies depression, Denies memory loss Endo Denies cold intolerance, Denies fatigue, Denies heat intolerance, Denies polydipsia and Denies polyuria Aller/Immun Denies wheezing Physical exam (Primary Care) Vital Signs: Last Vital Signs Temp 97.9 F 10/15/23 16:58 Pulse 82 10/15/23 16:58 Resp 13 10/15/23 16:58 BP 108/70 10/15/23 16:58 Pulse Ox 99 10/15/23 16:58 Oxygen Delivery Method Room Air 10/15/23 16:58 BMI result Body Mass Index 27.4 Tobacco/Smoking Status: Tobacco use Status Tobacco use date assessed 04/11/23 08/17/23 11:27 Patient Tobacco Use Status Former Tobacco user 08/17/23 11:27 e-Cigarette/Vaping Use Never Used 08/17/23 11:27 Depression Screening Interpretation: Positive Depression Screening Follow-up: Existing condition and In treatment Thrive Assessment: Date of Thrive Assessment Date Thrive assessed 08/17/23 08/17/23 11:27 Const Other: General: no acute distress and well developed Nutritional Appearance: well nourished Orientation/consciousness: patient oriented x3 [facility] Head: Yes normocephalic and Yes atraumatic Eyes General: appearance normal, both eyes and all related structures Pupils: Equal, round and reactive pupils present EOM: EOMs intact bilaterally Resp Effort & Inspection: normal respiratory effort Auscultation: clear to auscultation bilaterally Cardio Rate: regular rate Rhythm: regular rhythm Heart sounds: S1 normal heart sound present, S2 normal heart sound present, no gallops, no murmurs and no rubs GI Palpation (GI): No Abdominal aortic bruit present, Soft to palpation, nontender, No hepatosplenomegaly present and No Rebound tenderness present Auscultation: normal bowel sounds General: Yes no CVA tenderness Back/Spine/Pelvis Back: no CVA tenderness Cervical Spine: cervical ROM normal and No Cervical spine tenderness Thoracic/Lumbar Spine: thoraco-lumbar ROM normal, No pain with thoraco-lumbar ROM, No thoracic spinal tenderness and No lumbar spinal tenderness Extrem General: Yes normal to inspection, No edema and No calf tenderness Skin General: warm and dry. Normal skin color. Normal skin turgor Neuro General: patient oriented x3, gait normal and no focal neuro deficit Cranial nerves: Yes Equal, round and reactive pupils present Cognition (Neuro): normal cognition Gait exam (Neuro): Normal gait present Sensory Exam: No Sensory deficit (Neuro) Psych Appearance: grossly normal Affect: normal affect Attitude: cooperative Thought process: Normal thought process present Assessment and Plan Assessment & Plan (1) Anxiety and depression: Code(s): F41.9 - Anxiety disorder, unspecified; F32.A - Depression, unspecified Plan: Reports controlled anxiety and depression symptoms No significant stress with school, work, and caring for her family PHQ-9 and CATY-7 scores revealed moderate depression and anxiety Continue current treatment regimen Routine exercise encouraged Follow-up in 3 months or return sooner with worsening or new symptoms Verbalized understanding and agreed with treatment plan (2) High triglycerides: Code(s): E78.1 - Pure hyperglyceridemia Plan: Recent lab results reviewed with the patient; unremarkable findings except for elevated triglycerides and low HDL Will increase fenofibrate. Take as prescribed Advised to limit foods high in saturated fat and avoid foods high in trans fat Routine exercise encouraged Will recheck lipid panel level in 3 months. Advised to fast for 10-12 hours, may drink water only, and get blood work done a week before her next visit Verbalized understanding and agreed with treatment (3) Low HDL (under 40): Code(s): E78.6 - Lipoprotein deficiency Plan: As above Orders: Orders Lipid Panel 3 Months E78.1 - Pure hyperglyceridemia, E78.6 - Lipoprotein deficiency Medications: New fenofibrate 54 mg PO DAILY 90 tabs 1RF 90 days Discontinued fenofibrate nanocrystallized Discontinued Reason: Doctor's Order 48 mg PO DAILY 90 tabs 3RF 90 days Coding Level of Care Code Est Pt Level 3 (60267) Diagnoses Anxiety and depression F41.9; F32.A High triglycerides E78.1 Low HDL (under 40) E78.6 Additional Codes CATY-7 Assessment Billing - CATY-7 Assessment Tool: CATY-7 Assessment 38012 ([id number])
[2023-10-15 16:58] VITALS: BP 108/70; PULSE 82; RESP 13; TEMP 36.6; O2SAT 99; BMI 27.4
== END 2023-10-15 18:02 | disposition home or self-care (01) ==
PROVIDERS: PCP Nurse Practitioner Family; Visit Provider Nurse Practitioner Family
DX: E78.1 Pure hyperglyceridemia (principal); F41.9 Anxiety disorder, unspecified; F32.A Depression, unspecified; E78.6 Lipoprotein deficiency
CPT/HCPCS: 99213

== ENCOUNTER 2024-01-29 07:59 | Outpatient (AMB) | payer BC, SELFPAY ==
--- NOTE | 2024-01-29 08:05 | A.OFFPC_ITS ---
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 meloxicam 7.5 mg PO DAILY norethindrone ac-eth estradiol 1-20 mg-mcg (Junel) 1 tab PO DAILY omeprazole 20 mg PO DAILY paroxetine HCl (Paxil) 10 mg PO DAILY 30 days Tobacco use date assessed: 10/15/23 Dental Screening Dental Screen Date: 10/15/23 HPI HPI Comments History of Present Illness Details 48-year-old female presents for anxiety, depression, and dyslipidemia follow-up She admits to taking her medications as prescribed without adverse reactions She reports controlled anxiety and depression symptoms. She has trouble falling asleep despite taking 50mg of Hydroxyzine at bedtime; however, she sleeps an average of 8 hours. 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 She believes that her anxiety and depression are related to the preparing for the exam She admits to engaging in physical exercise 3 days a week She did not get lipid panel blood work done as instructed before this visit No acute symptoms at this time [facility] Medical History No pertinent past medical history Surgical History History of esophagogastroduodenoscopy (EGD) Hx of colonoscopy H/O nasal septoplasty Family History Other Mental health disorder Substance abuse Social History Housing: House Patient Tobacco Use Status: Former Tobacco user Quit Date: 10 years ago e-Cigarette/Vaping Use: Never Used Second Hand Smoke Exposure: No service: No Current occupational status: employed 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 1. Little interest or pleasure in doing things: not at all 2. Feeling down, depressed, or hopeless: not at all 3. Trouble falling or staying asleep, or sleeping too much: not at all 4. Feeling tired or having little energy: several days 5. Poor appetite or overeating: not at all 6. Feeling bad about yourself - or that you are a failure or have let yourself or your family down: several days 7. Trouble concentrating on things, such as reading the newspaper or watching television: not at all 8. Moving or speaking so slowly that other people could have noticed. Or the opposite - being so fidgety or restless that you have been moving around a lot more than usual: not at all 9. Thoughts that you would be better off or of hurting yourself in some way: not at all Total score: 2 Depression Screening Interpretation: Negative Depression Screening Done: Yes 83718 - PHQ-9 Billing: Yes Source: Developed by Drs. Dami Tovar, Janelle Perales, Rinku De Paz and colleagues, with an educational rené from [employer]. Thrive Questionnaire Date Thrive assessed: 08/17/23 CATY-7 AMB Questionnaire CATY-7 Date CATY - 7 assessed: 01/29/24 Feeling nervous, anxious, or on edge: 1 = Several days Not being able to stop or control worryin = Several days Worrying too much about different things: 2 = More than half the days Trouble relaxin = More than half the days Being so restless that it is hard to sit still: 0 = Not at all Becoming easily annoyed or irritable: 2 = More than half the days Feeling afraid as if something awful might happen: 0 = Not at all Total CATY-7 score (0-4 normal; 5-9 mild; 10-14 moderate; 15-21 severe): 8 Source: Developed by Drs. Dami Tovar, Janelle Perales, Rinku De Paz and colleagues, with an educational rené from [employer]. ACTY-7 Assessment Billing CATY-7 Assessment Tool: CATY-7 Assessment 35450 Review of Systems Const Details: Const Denies chills, Denies fatigue, Denies fever(s), Denies headache(s) and Denies weakness ENT Denies dizziness and Denies headache(s) Card Denies chest pain, Denies lightheadedness, Denies dyspnea and Denies other (Palpitations) Resp Denies cough, Denies dyspnea, Denies wheezing and Denies other ( shortness of breath) GI Denies abdominal pain, Denies melena, Denies hematochezia, Denies change in bowel habits, Denies dyspepsia and Denies nausea Denies hematuria and Denies dysuria Musc Denies abnormal gait, Denies myalgias, Denies arthralgias, Denies numbness and Denies tingling Skin/Breast Denies rash, Denies unusual bruising and Denies wounds Neuro Denies abnormal gait, Denies dizziness, Denies headache(s), Denies memory loss, Denies numbness, Denies Sensory deficit (Neuro), Denies tingling and Denies weakness Psych Denies anxiety, Denies depression, Denies memory loss Endo Denies cold intolerance, Denies fatigue, Denies heat intolerance, Denies polydipsia and Denies polyuria Aller/Immun Denies wheezing Physical exam (Primary Care) Vital Signs: Last Vital Signs Temp 98.1 F 01/29/24 08:06 Pulse 100 01/29/24 08:06 Resp 14 01/29/24 08:06 BP 122/64 01/29/24 08:06 Pulse Ox 99 01/29/24 08:06 Oxygen Delivery Method Room Air 01/29/24 08:06 BMI result Body Mass Index 27.3 Tobacco/Smoking Status: Tobacco use Status Tobacco use date assessed 10/15/23 10/15/23 17:06 Patient Tobacco Use Status Former Tobacco user 10/15/23 17:06 e-Cigarette/Vaping Use Never Used 10/15/23 17:06 Depression Screening Interpretation: Negative Thrive Assessment: Date of Thrive Assessment Date Thrive assessed 08/17/23 10/15/23 17:06 Const Other: General: no acute distress and well developed Nutritional Appearance: well nourished Orientation/consciousness: patient [facility]3 [facility]: Yes normocephalic and Yes atraumatic Eyes General: appearance normal, both eyes and all related structures Pupils: Equal, round and reactive pupils present EOM: EOMs intact bilaterally Resp Effort & Inspection: normal respiratory effort Auscultation: clear to auscultation bilaterally Cardio Rate: regular rate Rhythm: regular rhythm Heart sounds: S1 normal heart sound present, S2 normal heart sound present, no gallops, no murmurs and no rubs GI Palpation (GI): No Abdominal aortic bruit present, Soft to palpation, nontender, No hepatosplenomegaly present and No Rebound tenderness present Auscultation: normal bowel sounds General: Yes no CVA tenderness Back/Spine/Pelvis Back: no CVA tenderness Cervical Spine: cervical ROM normal and No Cervical spine tenderness Thoracic/Lumbar Spine: thoraco-lumbar ROM normal, No pain with thoraco-lumbar RO M, No thoracic spinal tenderness and No lumbar spinal tenderness Extrem General: Yes normal to inspection, No edema and No calf tenderness Skin General: warm and dry. Normal skin color. Normal skin turgor Neuro General: patient oriented x3, gait normal and no focal neuro deficit Cranial nerves: Yes Equal, round and reactive pupils present Cognition (Neuro): normal cognition Gait exam (Neuro): Normal gait present Sensory Exam: No Sensory deficit (Neuro) Psych Appearance: grossly normal Affect: normal affect Attitude: cooperative Thought process: Normal thought process present Assessment and Plan Assessment & Plan (1) Anxiety and depression: Code(s): F41.9 - Anxiety disorder, unspecified; F32.A - Depression, unspecified Plan: Reports controlled anxiety and depression symptoms. Reports difficulty falling asleep but gets adequate amount of sleep PHQ-9 is normal. CATY-7 score revealed mild anxiety Continue to take hydroxyzine and paroxetine as prescribed Will start trazodone 25 mg every night to target sleep disturbance Routine exercise encouraged Follow-up in 3 months for an extended physical exam or return sooner with wors ening or new symptoms Verbalized understanding and agreed with the treatment plan (2) Sleep disturbance: Code(s): G47.9 - Sleep disorder, unspecified Plan: As above (3) High triglycerides: Code(s): E78.1 - Pure hyperglyceridemia Plan: Lipid panel labs was not done for this visit Encouraged to get fasting blood work done before her next visit Continue current treatment regimen Advised to limit foods high in saturated fat and avoid foods high in trans fat Routine exercise encouraged Verbalized understanding and agreed with the treatment plan (4) Low HDL (under 40): Code(s): E78.6 - Lipoprotein deficiency Plan: As above Medications: New trazodone 25 mg (1/2 x 50 mg) PO BEDTIME 30 days PRN 30 tabs 3RF sleep Coding Level of Care Code Est Pt Level 4 (78668) Complex EM visit Add On G2211 Diagnoses Anxiety and depression F41.9; F32.A Sleep disturbance G47.9 High triglycerides E78.1 Low HDL (under 40) E78.6 Additional Codes CATY-7 Assessment Billing - CATY-7 Assessment Tool: CATY-7 Assessment 57514 ([id number])
[2024-01-29 08:06] VITALS: BP 122/64; PULSE 100; RESP 14; TEMP 36.7; O2SAT 99; BMI 27.3
== END 2024-01-29 08:25 | disposition home or self-care (01) ==
PROVIDERS: PCP Nurse Practitioner Family; Visit Provider Nurse Practitioner Family
DX: G47.9 Sleep disorder, unspecified (principal); F41.9 Anxiety disorder, unspecified; F32.A Depression, unspecified; E78.1 Pure hyperglyceridemia; E78.6 Lipoprotein deficiency
CPT/HCPCS: 99214

== ENCOUNTER 2024-07-18 15:04 | Outpatient (REF) | payer BC, SELFPAY ==
[2024-07-18 19:03] LABS: Influenza A PCR NEGATIVE (Negative); Influenza B PCR NEGATIVE (Negative); Resp Syncy Virus RNA Qual PCR NEGATIVE (Negative); SARS COV2 PCR INHOUSE NEGATIVE (Negative)
== END 2024-07-18 15:05 | disposition home or self-care (01) ==
LOC: HO.LAB 15:04
PROVIDERS: PCP Nurse Practitioner Family; Visit Provider Nurse Practitioner Family
DX: J06.9 Acute upper respiratory infection, unspecified (principal); K52.9 Noninfective gastroenteritis and colitis, unspecified
CPT/HCPCS: 0241U; 87880; 96127

== ENCOUNTER → 2024-07-18 15:04 | Outpatient (AMB) | payer BC, SELFPAY ==
--- NOTE | 2024-07-18 15:06 | MHC.PC.OV ---
Vital Signs 07/18/24 15:09 Height 5 ft 2 in Weight 155 lb 4 oz BMI 28.4 BP 128/68 Blood Pressure Location Rt brachial Position Sitting Pulse 79 Pulse Source Pulse Oximeter Pulse Oximetry (%) 99 Oxygen Delivery Method Room Air Intake Visit Reasons: strep still around over 1 week Intake Note: Patient is here to follow up on strep not going away after a week. Presentation Specialist Required: No Game Artist: Not Required per policy Accompanied by: Self / Same As Patient Allergies dicyclomine Adverse Reaction (Intermediate, Verified 07/18/24 15:35) Blurry Vision Medication List - Last Reconciled 07/18/24 by Fiona Aquino CNP calcium polycarbophil (FiberCon) 625 mg PO DAILY 30 days fenofibrate 54 mg PO DAILY 90 days hydroxyzine HCl 25 mg PO TID PRN loperamide (Imodium A-D) 2 mg orally PRN; Take 2 cap after 1st loose stool- One caplet after each subsequent loose stool No more than 4 caps in a 24 hour. meloxicam 7.5 mg PO DAILY norethindrone ac-eth estradiol 1-20 mg-mcg (Junel) 1 tab PO DAILY omeprazole 20 mg PO DAILY paroxetine HCl (Paxil) 10 mg PO DAILY 30 days trazodone 25 mg (1/2 x 50 mg) PO BEDTIME PRN 30 days Tobacco use date assessed: 07/18/24 Dental Screening Dental Screen Date: 10/15/23 HPI HPI Comments History of Present Illness Details 48-year-old female presents with complaints of sore throat. She was evaluated at an urgent care on 07/07/2024 and was treated for sinusitis, right ear infection, and strep pharyngitis. She completed course of Amoxicillin 500mg BID x 10 days on yesterday. Her symptoms improved. However, the sore throat returned 2 days ago. She started experiencing right ear pain yesterday. She has persistent frontal headache which started today. She denies constitutional symptoms. She notes that no viral testing was done at the urgent care. 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 1. Little interest or pleasure in doing things: not at all 2. Feeling down, depressed, or hopeless: not at all 3. Trouble falling or staying asleep, or sleeping too much: not at all 4. Feeling tired or having little energy: several days 5. Poor appetite or overeating: not at all 6. Feeling bad about yourself - or that you are a failure or have let yourself or your family down: several days 7. Trouble concentrating on things, such as reading the newspaper or watching television: not at all 8. Moving or speaking so slowly that other people could have noticed. Or the opposite - being so fidgety or restless that you have been moving around a lot more than usual: not at all 9. Thoughts that you would be better off or of hurting yourself in some way: not at all Total score: 2 Depression Screening Interpretation: Positive Depression Screening Done: Yes 46787 - PHQ-9 Billing: Yes Source: Developed by Drs. Dami Tovar, Janelle Perales, Rinku De Paz and colleagues, with an educational rené from [employer]. Thrive Questionnaire Date Thrive assessed: 07/18/24 I am a: Patient What is your living situation today?: I have a steady place to live Within the past 12 months, did the food you bought not last and you didn't have the money to get more?: Never true Within the past 12 months, did you worry whether your food would run out before you got money to buy more?: Never true Do you have trouble paying for medicines?: No Do you have trouble getting transportation to medical appointments?: No Do you have trouble paying your heating and electricity bill?: No Do you have trouble taking care of your child, family member or friend?: No Do you have trouble with day-to-day activities such as bathing, preparing meals, shopping, managing finances, etc.?: No Are you currently unemployed and looking for a job?: No Are you interested in more education?: Yes Please select the resources that you would like help with: None Currently or been in a relationship where the following occur: No concerns reported THRIVE Score: 0 AUDIT C Alcohol Use Questionnaire (AUDIT-C) 1. How often do you have a drink containing alcohol?: Never 3. How often do you have six or more drinks on one occasion?: Never Total Score: 0 CATY-7 AMB Questionnaire CATY-7 Date CATY - 7 assessed: 01/29/24 Feeling nervous, anxious, or on edge: 1 = Several days Not being able to stop or control worryin = Several days Worrying too much about different things: 1 = Several days Trouble relaxin = More than half the days Being so restless that it is hard to sit still: 0 = Not at all Becoming easily annoyed or irritable: 2 = More than half the days Feeling afraid as if something awful might happen: 0 = Not at all Total CATY-7 score (0-4 normal; 5-9 mild; 10-14 moderate; 15-21 severe): 7 Source: Developed by Drs. Dami Tovar, Janelle Perales, Rinku De Paz and colleagues, with an educational rené from [employer]. Review of Systems Const Details: Const Denies chills, Denies fatigue, Denies fever(s), Denies headache(s) and Denies weakness ENT Reports as per HPI Card Denies chest pain, Denies lightheadedness, Denies dyspnea and Denies other (Palpitations) Resp Denies cough, Denies dyspnea, Denies wheezing and Denies other ( shortness of breath) GI Denies abdominal pain, Denies melena, Denies hematochezia, Denies change in bowel habits, Denies dyspepsia and Denies nausea Denies hematuria and Denies dysuria Musc Denies abnormal gait, Denies myalgias, Denies arthralgias, Denies numbness and Denies tingling Skin/Breast Denies rash, Denies unusual bruising and Denies wounds Neuro Denies abnormal gait, Denies dizziness, Denies headache(s), Denies memory loss, Denies numbness, Denies Sensory deficit (Neuro), Denies tingling and Denies weakness Psych Denies anxiety, Denies depression, Denies memory loss Endo Denies cold intolerance, Denies fatigue, Denies heat intolerance, Denies polydipsia and Denies polyuria Aller/Immun Denies wheezing Physical exam (Primary Care) Vital Signs: Last Vital Signs Pulse 79 07/18/24 15:09 BP 128/68 07/18/24 15:09 Pulse Ox 99 07/18/24 15:09 Oxygen Delivery Method Room Air 07/18/24 15:09 BMI result Body Mass Index 28.4 Tobacco/Smoking Status: Tobacco use Status Tobacco use date assessed 07/18/24 07/18/24 15:15 Patient Tobacco Use Status Former Tobacco user 07/18/24 15:15 e-Cigarette/Vaping Use Never Used 07/18/24 15:15 PHQ-9: PHQ-9 Score PHQ-9: Total score 2 07/18/24 15:21 Depression Screening Interpretation: Positive Thrive Assessment: Date of Thrive Assessment Date Thrive assessed 07/18/24 07/18/24 15:15 Currently or been in a relationship where the following occur: No concerns reported Const Other: General: no acute distress and well developed Nutritional Appearance: well nourished Orientation/consciousness: patient oriented x3 HENMT Head is normocephalic Bilateral ear canal and TM are normal Nasal turbinates are pink and moist Oropharynx with slight erythema. No edema, patches, or exudates Sinuses are nontender with palpation No auricular or cervical lymphadenopathy Eyes General: appearance normal, both eyes and all related structures Pupils: Equal, round and reactive pupils present EOM: EOMs intact bilaterally Resp Effort & Inspection: normal respiratory effort Auscultation: clear to auscultation bilaterally Cardio Rate: regular rate Rhythm: regular rhythm Heart sounds: S1 normal heart sound present, S2 normal heart sound present, no gallops, no murmurs and no rubs GI Palpation (GI): No Abdominal aortic bruit present, Soft to palpation, nontender, No hepatosplenomegaly present and No Rebound tenderness present Auscultation: normal bowel sounds General: Yes no CVA tenderness Back/Spine/Pelvis Back: no CVA tenderness Extrem General: Yes normal to inspection, No edema and No calf tenderness Skin General: warm and dry. Normal skin color. Normal skin turgor Neuro General: patient oriented x3, gait normal and no focal neuro deficit Cranial nerves: Yes Equal, round and reactive pupils present Cognition (Neuro): normal cognition Gait exam (Neuro): Normal gait present Sensory Exam: No Sensory deficit (Neuro) Psych Appearance: grossly normal Affect: normal affect Attitude: cooperative Thought process: Normal thought process present Results AMB Rapid Strep AMB Rapid Strep Negative Last Edit by DOMINICK Pascal on 07/18/24 15:45 Coding Level of Care Code Est Pt Level 3 (82177) Diagnoses Viral upper respiratory illness J06.9 Additional Codes PHQ-9 - 76737 - PHQ-9 Billing: Yes ([id number]) Assessment & Plan Assessment & Plan (1) Viral upper respiratory illness: Code(s): J06.9 - Acute upper respiratory infection, unspecified Category: Medical Plan: Likely viral illness though possibly allergies Rapid strep test is negative No exam evidence of bacterial infection Viral illness There is no antibiotic medication for viruses.? They must run their course.? Most average 5-7 days but 7-10 days is not uncommon and up to 14 days is still possible.? A cough is often the last symptom to resolve and this can last for weeks in some cases. Rest Hydrate well -? Drink plenty of fluids.? Especially water. Tylenol or ibuprofen for muscle aches, headache, fever/discomfort Cannot rule out COVID-19/RSV/Flu infection Nasal swab acquired and will be sent to the lab Return for new or worsening symptoms Verbalized understanding and agreed with treatment plan. Orders: Orders UA CC w/rflx Micro + Cult Today Z00.00 - Encounter for general adult medical examination without abnormal findings SARS-CoV2/FLU/RSV Today J06.9 - Acute upper respiratory infection, unspecified Microalbumin, Random (w Creat) Today Z00.00 - Encounter for general adult medical examination without abnormal findings AMB Rapid Strep Screen Today Z13.9 - Encounter for screening, unspecified Medications: Refilled loperamide (Imodium A-D) 2 mg orally PRN; Take 2 cap after 1st loose stool- One caplet after each subsequent loose stool No more than 4 caps in a 24 hour. 30 caps 2RF loose stool K52.9 - Noninfective gastroenteritis and colitis, unspecified
[2024-07-18 15:09] VITALS: BP 128/68; PULSE 79; O2SAT 99; BMI 28.4
== END ==
PROVIDERS: PCP Nurse Practitioner Family; Visit Provider Nurse Practitioner Family
DX: Z13.9 Encounter for screening, unspecified (principal); J06.9 Acute upper respiratory infection, unspecified

== ENCOUNTER 2024-12-10 08:27 | Outpatient (AMB) | payer BC, SELFPAY ==
--- NOTE | 2024-12-10 08:43 | MHC.PC.OV ---
Vital Signs 12/10/24 09:03 Height 5 ft 2 in Weight 151 lb 4 oz BMI 27.7 BP 98/68 Blood Pressure Location Lt brachial Position Sitting Respiration 12 Pulse 55 Pulse Source Pulse Oximeter Temp 97.4 F Temp Source Oral Pulse Oximetry (%) 98 Oxygen Delivery Method Room Air Intake Visit Reasons: devin from ha Intake Note: DEVIN to establish care. Patient c/o eczema everytime she gets sick for the past year and also patient needs refill on meds. Seo Intern Required: No Allergies dicyclomine Adverse Reaction (Intermediate, Verified 12/10/24 09:08) Blurry Vision Medication List - Last Reconciled 12/10/24 by Gaviota Johnson, STRATEGIC ACCOUNT DIRECTOR-BC calcium polycarbophil (FiberCon) 625 mg PO DAILY 30 days fenofibrate 54 mg PO DAILY 90 days hydroxyzine HCl 25 mg PO TID PRN loperamide (Imodium A-D) 2 mg orally PRN; Take 2 cap after 1st loose stool- One caplet after each subsequent loose stool No more than 4 caps in a 24 hour. meloxicam 7.5 mg PO DAILY norethindrone ac-eth estradiol 1-20 mg-mcg (Junel) 1 tab PO DAILY omeprazole 20 mg PO DAILY paroxetine HCl (Paxil) 10 mg PO DAILY 30 days trazodone 25 mg (1/2 x 50 mg) PO BEDTIME PRN 30 days Tobacco use date assessed: 12/10/24 Dental Screening Dental Screen Date: 12/10/24 Did you have a dental visit in the last 12 months?: Yes Did you have a dental problem in the last 6 months where you did not have access to dental care?: No Was dental information given to patient?: Patient has dentist HPI HPI Comments History of Present Illness Details Shannon 49 y/o F with MDD, CATY, low HDL, GERD, bilat knee OA (candidate for partial knee replacement) Moderate diverticulosis seen in the sigmoid colon s/p bladder stimulator implant, nasal septalplasty 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 Chronic GI issues: Diarrhea and GERD; Triggered by stress; Using fiber and PPI. Helps diarrhea. Diarrhea has been present for years. Overdue for repeat colon. Eczema only when sick. Does not have when not sick. Saw Derm several years ago for something else. Does not have this rash at this time. Does not have pics to show me. I asked she send me message on the portal. Can consider referring back to Derm prn. Mood stable on current meds Taking MVI and Vit D Labs 2023 show mild anemia, low HDL otherwise fine. Repeat labs as below. Vit D WNL taking MVI + D , she should cont this. Exam Awake alert NAD Scleras nonicteric bilat MMM RRR LS CTAB Abd soft, nontender, normoactive bs x 4 Mood and affect appropriate Skin clear Results - see below. Discussion We reviewed the patient's gastrointestinal symptoms and potential eczema outbreaks. I emphasized the importance of maintaining a patient portal account for convenient communication and management of appointments, including a pending colonoscopy follow-up. I advised the patient regarding the possible link between diarrhea and Paxil, suggesting further discussion with her gastrointestinal specialist to assess the need for any medication adjustments. I obtained the patient's agreement for updated lab work to evaluate the previously identified mild anemia and monitor general health indicators. I addressed her robust exercise routine and affirmed that maintaining regular physical activity is beneficial, considering her osteoarthritis. We agreed on the need for further assessment of eczema to establish a link with her autoimmune profile. Lastly, I proposed scheduling a wellness check in six months to align with her overall care strategy. Patient was informed and verbally consented to the use of an ambient scribe for clinic note documentation during this visit. Total time spent caring for the patient today was 41 minutes. This includes time spent before the visit reviewing the chart, time spent during the visit, and time spent after the visit on documentation, reviewing laboratory results, diagnostic imaging, medications, performing a medically necessary evaluation, counseling on diagnoses, care coordination, ordering appropriate tests, ordering appropriate medications, review of tests performed by other providers, reporting test results with the patient, communication with other healthcare providers. [facility] Medical History (Updated 12/10/24 @ 17:05 by Gaviota Johnson, DAPHNEY-) History of mammogram (~2023) No pertinent past medical history Surgical History H/O nasal septoplasty History of esophagogastroduodenoscopy (EGD) Hx of colonoscopy (~2021) Social History (Updated 12/10/24 @ 08:45 by Chace Venegas MA) Household Members: Family Housing: House Are you a primary caretaker resort to a significant other at home: No Do you presently have visiting nurse or other home services: No Alcohol intake: current Alcohol intake frequency: former alcohol drinker Patient Tobacco Use Status: Former Tobacco user e-Cigarette/Vaping Use: Never Used Second Hand Smoke Exposure: No service: No Current occupational status: employed 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 1. Little interest or pleasure in doing things: not at all 2. Feeling down, depressed, or hopeless: not at all 3. Trouble falling or staying asleep, or sleeping too much: more than half the days 4. Feeling tired or having little energy: several days 5. Poor appetite or overeating: not at all 6. Feeling bad about yourself - or that you are a failure or have let yourself or your family down: not at all 7. Trouble concentrating on things, such as reading the newspaper or watching television: not at all 8. Moving or speaking so slowly that other people could have noticed. Or the opposite - being so fidgety or restless that you have been moving around a lot more than usual: not at all 9. Thoughts that you would be better off or of hurting yourself in some way: not at all Total score: 3 Depression Screening Interpretation: Negative Depression Screening Done: Yes 30238 - PHQ-9 Billing: Yes Source: Developed by Drs. Dami Tovar, Janelle Perales, Rinku De Paz and colleagues, with an educational rené from [employer]. Thrive Questionnaire Date Thrive assessed: 12/10/24 I am a: Patient What is your living situation today?: I have a steady place to live Within the past 12 months, did the food you bought not last and you didn't have the money to get more?: Never true Within the past 12 months, did you worry whether your food would run out before you got money to buy more?: Never true Do you have trouble paying for medicines?: No Do you have trouble getting transportation to medical appointments?: No Do you have trouble paying your heating and electricity bill?: No Do you have trouble taking care of your child, family member or friend?: No Do you have trouble with day-to-day activities such as bathing, preparing meals, shopping, managing finances, etc.?: No Are you currently unemployed and looking for a job?: No Are you interested in more education?: No Please select the resources that you would like help with: None Currently or been in a relationship where the following occur: No concerns reported THRIVE Score: 0 AUDIT C Alcohol Use Questionnaire (AUDIT-C) 1. How often do you have a drink containing alcohol?: Never 3. How often do you have six or more drinks on one occasion?: Never Total Score: 0 Score Reviewed/Action Taken: Yes CATY-7 AMB Questionnaire CATY-7 Date CATY - 7 assessed: 12/10/24 Feeling nervous, anxious, or on edge: 0 = Not at all Not being able to stop or control worryin = Not at all Worrying too much about different things: 0 = Not at all Trouble relaxin = Not at all Being so restless that it is hard to sit still: 0 = Not at all Becoming easily annoyed or irritable: 0 = Not at all Feeling afraid as if something awful might happen: 0 = Not at all Total CATY-7 score (0-4 normal; 5-9 mild; 10-14 moderate; 15-21 severe): 0 Source: Developed by Drs. Dami Tovar, Janelle Perales, Rinku De Paz and colleagues, with an educational rené from [employer]. CATY-7 Assessment Billing CATY-7 Assessment Tool: CATY-7 Assessment 56871 Physical exam (Primary Care) Vital Signs: Last Vital Signs Temp 97.4 F 12/10/24 09:03 Pulse 55 12/10/24 09:03 Resp 12 12/10/24 09:03 BP 98/68 12/10/24 09:03 Pulse Ox 98 12/10/24 09:03 Oxygen Delivery Method Room Air 12/10/24 09:03 BMI result Body Mass Index 27.7 Tobacco/Smoking Status: Tobacco use Status Tobacco use date assessed 12/10/24 12/10/24 08:47 Patient Tobacco Use Status Former Tobacco user 12/10/24 08:47 e-Cigarette/Vaping Use Never Used 12/10/24 08:47 PHQ-9: PHQ-9 Score PHQ-9: Total score 3 12/10/24 09:08 Depression Screening Interpretation: Negative Thrive Assessment: Date of Thrive Assessment Date Thrive assessed 12/10/24 12/10/24 08:47 Currently or been in a relationship where the following occur: No concerns reported Results Reviewed Results Reviewed: Test Result Flag Reference Sodium 139 135-145 mmol/L Potassium 4.3 3.3-5.1 mmol/L CL 109 H 96-108 mmol/L CO2 26 22-29 mmol/L Gap 8 L 12-20 BUN 33 H 9-16 mg/dL Creat 0.91 0.5-1.4 mg/dL eGFR > 60 Chronic Kidney Disease: Estimated GFR < 60 mL/min/1.73m2 Severe Kidney Disease: Estimated GFR < 15 mL/min/1.73m2 Glucose, Random 90 60-115 mg/dL CA 9.1 8.4-10.2 mg/dL Total Bili 0.5 0.0-1.0 mg/dL AST (GOT) 24 5-31 U/L ALT (GPT) 12 0-31 U/L Protein, Total 7.0 6.5-8.0 g/dL Alb 4.4 3.5-5.0 g/dL Triglyceride 193 H <150 mg/dL Desirable Triglyceride: less than 150 mg/dL Borderline High Triglyceride 150-199 mg/dL High Triglyceride: 200-499 mg/dL Very High Triglyceride: greater than or equal to 5OO mg/dL Cholesterol 185 <200 mg/dL Desirable Cholesterol: less than 200 mg/dL Borderline High Cholesterol: 200-239 mg/dL High Cholesterol: greater than 239 mg/dL LDL Calculated 106 H <100 mg/dL Desirable LDL: less than 100 mg/dL Near Optimal/Above Optimal LDL: 110-129 mg/dL Borderline High LDL: 130-159 mg/dL High LDL: 160-189 mg/dL Very High LDL: greater than or equal to 190 mg/dL HDL 41 >40 mg/dL Desirable HDL: greater than 40 mg/dL Note: This HDL assay may give artificially low results in patients with liver disease. Alk Phos 52 39-117 U/L Test Result Flag Reference Creat, Ur 94.65 mg/dL Microalbumin Ur < 5.0 mg/L Alb/Creat Ratio Test not performed <30 ug/mg cr Unable to calculate albumin/creatinine ratio due to low microalbumin or creatinine result. Coding Level of Care Code Est Pt Level 5 (05771) Complex EM visit Add On G2211 Diagnoses Encounter to establish care Z76.89 Mild anemia D64.9 Chronic diarrhea K52.9 CATY (generalized anxiety disorder) F41.1 Mild episode of recurrent major depressive disorder F33.0 Major depression episode severity: mild Low HDL (under 40) E78.6 Diverticulosis K57.90 Bilateral primary osteoarthritis of knee M17.0 GERD without esophagitis K21.9 Additional Codes CATY-7 Assessment Billing - CATY-7 Assessment Tool: CATY-7 Assessment 72191 ([id number]) PHQ-9 - 69152 - PHQ-9 Billing: Yes ([id number]) Assessment & Plan Assessment & Plan (1) Encounter to establish care: Code(s): Z76.89 - Persons encountering health services in other specified circumstances (2) Mild anemia: Comment: RESOLVED ON MOST RECENT LABS. Code(s): D64.9 - Anemia, unspecified Category: Medical (3) Chronic diarrhea: Code(s): K52.9 - Noninfective gastroenteritis and colitis, unspecified Category: Medical (4) CATY (generalized anxiety disorder): Code(s): F41.1 - Generalized anxiety disorder Category: Medical (5) MDD (major depressive disorder), recurrent episode: Code(s): F33.9 - Major depressive disorder, recurrent, unspecified Category: Medical Qualifiers: Major depression episode severity: mild Qualified Code(s): F33.0 - Major depressive disorder, recurrent, mild (6) Low HDL (under 40): Code(s): E78.6 - Lipoprotein deficiency Category: Medical (7) Diverticulosis: Code(s): K57.90 - Diverticulosis of intestine, part unspecified, without perforation or abscess without bleeding Category: Medical (8) Bilateral primary osteoarthritis of knee: Comment: WILL BE GETTING PARTIAL KNEE REPLACEMENT [facility] Code(s): M17.0 - Bilateral primary osteoarthritis of knee Category: Medical (9) GERD without esophagitis: Code(s): K21.9 - Gastro-esophageal reflux disease without esophagitis Category: Medical Plan . Orders: Orders Complete Blood Count no Diff Today D64.9 - Anemia, unspecified Comprehensive Met. Panel Today D64.9 - Anemia, unspecified Ferritin Today D64.9 - Anemia, unspecified Hemoglobin A1c Today D64.9 - Anemia, unspecified Vitamin B12 and Folate Today D64.9 - Anemia, unspecified Lipid Panel Today D64.9 - Anemia, unspecified Microalbumin, Random (w Creat) Today D64.9 - Anemia, unspecified TSH reflex Free T4 Today D64.9 - Anemia, unspecified Vitamin D 25-OH Total Today D64.9 - Anemia, unspecified Medications: Changed From calcium polycarbophil (FiberCon) 625 mg PO DAILY 30 days 30 tabs 2RF To calcium polycarbophil (FiberCon) 625 mg PO DAILY 90 days 90 tabs 2RF Refilled omeprazole 20 mg PO DAILY 90 caps 2RF Discontinued trazodone Discontinued Reason: Patient no longer taking 25 mg (1/2 x 50 mg) PO BEDTIME 30 days PRN 30 tabs 0RF sleep
[2024-12-10 09:03] VITALS: BP 98/68; PULSE 55; RESP 12; TEMP 36.3; O2SAT 98; BMI 27.7
== END 2024-12-10 09:31 | disposition home or self-care (01) ==
LOC: HO.HMCFM 08:28
PROVIDERS: PCP Nurse Practitioner Family; Visit Provider Nurse Practitioner Family
DX: D64.9 Anemia, unspecified (principal); F33.0 Major depressive disorder, recurrent, mild; Z76.89 Persons encountering health services in other specified circumstances; K52.9 Noninfective gastroenteritis and colitis, unspecified; F41.1 Generalized anxiety disorder; E78.6 Lipoprotein deficiency; K57.90 Diverticulosis of intestine, part unspecified, without perforation or abscess without bleeding; M17.0 Bilateral primary osteoarthritis of knee; K21.9 Gastro-esophageal reflux disease without esophagitis

== ENCOUNTER → 2024-12-10 08:27 | Outpatient (BNVA) | payer BC, SELFPAY | PROVIDERS: PCP Nurse Practitioner Family; Visit Provider Nurse Practitioner Family | DX: Z76.89 Persons encountering health services in other specified circumstances (principal); D64.9 Anemia, unspecified; K52.9 Noninfective gastroenteritis and colitis, unspecified; F41.1 Generalized anxiety disorder; F33.0 Major depressive disorder, recurrent, mild; E78.6 Lipoprotein deficiency; K57.90 Diverticulosis of intestine, part unspecified, without perforation or abscess without bleeding; M17.0 Bilateral primary osteoarthritis of knee; K21.9 Gastro-esophageal reflux disease without esophagitis | CPT/HCPCS: 96127 ==

== ENCOUNTER 2024-12-10 09:42 | Outpatient (REF) | payer BC, SELFPAY ==
[2024-12-10 12:07] LABS: Hematocrit 37.6 % (37.0-47.0); Hemoglobin 12.9 g/dl (12.0-16.0); Mean Corpuscular HGB Conc 34.3 g/dl (31.0-35.0); Mean Corpuscular Hemoglobin 30.2 pg (27.0-33.0); Mean Corpuscular Volume 88.1 fL (80.0-98.0); Mean Platelet Volume 9.4 fL (9.4-12.3); Platelet Count 354 X10*3/uL (160-400); Red Blood Count 4.27 X10*6/uL (4.20-5.50); Red Cell Distribution Width 12.5 % (11.0-16.0); White Blood Count 5.9 X10*3/uL (4.8-10.8)
[2024-12-10 12:09] LABS: Estimated Average Glucose 94 mg/dL; Hemoglobin A1C 105.0991 umol/L; Hemoglobin A1c % 4.9 % (<6.0); Total Hemoglobin (HGBA1C) 3502.1852 umol/L
[2024-12-10 12:11] LABS: Alanine Aminotransferase 12 U/L (0-31); Albumin Level 4.4 g/dL (3.5-5.0); Alkaline Phosphatase 52 U/L (39-117); Anion Gap 8 (12-20); Aspartate Amino Transferase 24 U/L (5-31); Bilirubin Total 0.5 mg/dL (0.0-1.0); Blood Urea Nitrogen 33 mg/dL (9-16); Calcium 9.1 mg/dL (8.4-10.2); Carbon Dioxide 26 mmol/L (22-29); Chloride 109 mmol/L (96-108); Cholesterol 185 mg/dL (<200); Estimated Glomerular Filt Rate > 60; Glucose Random 90 mg/dL (60-115); HDL Cholesterol 41 mg/dL (>40); LDL Cholesterol Calculated 106 mg/dL (<100); Potassium 4.3 mmol/L (3.3-5.1); Sodium 139 mmol/L (135-145); Triglycerides 193 mg/dL (<150)
[2024-12-10 12:13] LABS: Cholesterol 182 mg/dL (<200); HDL Cholesterol 38 mg/dL (>40); LDL Cholesterol Calculated 104 mg/dL (<100); Triglycerides 200 mg/dL (<150)
[2024-12-10 12:30] LABS: Ferritin 38 ng/mL (10-250); TSH reflex Free T4 0.51 uIU/mL (0.32-4.0); Vitamin D 25-OH Total 84.8 ng/mL (>30)
[2024-12-10 12:41] LABS: Folate 18.9 ng/mL (> or = 4.0); Vitamin B12 598 pg/mL (200-900)
[2024-12-10 12:53] LABS: Creatinine Urine 94.65 mg/dL; Microalbumin Urine < 5.0 mg/L
== END 2024-12-10 09:43 | disposition home or self-care (01) ==
LOC: HO.WFDLDS 09:42
PROVIDERS: Referring Provider Nurse Practitioner Family; Visit Provider Nurse Practitioner Family
DX: Z00.00 Encounter for general adult medical examination without abnormal findings (principal); D64.9 Anemia, unspecified; E78.6 Lipoprotein deficiency; E78.1 Pure hyperglyceridemia; Z13.1 Encounter for screening for diabetes mellitus
CPT/HCPCS: 36415; 80053; 80061; 82043; 82306; 82570; 82607; 82728; 82746; 83036; 84443; 85027

== ENCOUNTER 2025-09-02 07:57 | Outpatient (AMB) | payer BC, SELFPAY ==
--- NOTE | 2025-09-02 07:58 | A.OFFPC_ITS ---
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: No Is last menstrual period known: Yes Last menstrual period: 08/11/25 Post menopausal: No Patient : No Allergies dicyclomine Adverse Reaction (Intermediate, Verified 09/02/25 08:11) Blurry Vision Medication List - Last Reconciled 09/02/25 by Gaviota Johnson, JUNIOR COPYWRITER- calcium polycarbophil (FiberCon) 625 mg PO DAILY 90 days celecoxib (Celebrex) 200 mg PO DAILY fenofibrate 54 mg PO DAILY 90 days hydroxyzine HCl 25 mg PO TID PRN 90 days loperamide (Imodium A-D) 2 mg orally PRN; Take 2 cap after 1st loose stool- One caplet after each subsequent loose stool No more than 4 caps in a 24 hour. multivitamin 1 tab PO DAILY omeprazole 20 mg PO DAILY paroxetine HCl (Paxil) 10 mg PO DAILY 30 days tirzepatide (weight loss) (Zepbound) 5 mg subcut QWEEK Tobacco use date assessed: 09/02/25 Dental Screening Dental Screen Date: 09/02/25 Did you have a dental visit in the last 12 months?: No Did you have a dental problem in the last 6 months where you did not have access to dental care?: No Was dental information given to patient?: Patient has dentist HPI HPI Comments History of Present Illness Details 50 y/o F with MDD, CATY, low HDL, GERD, b ilat knee OA (candidate for partial knee replacement) Moderate diverticulosis seen in the sigmoid colon s/p bladder stimulator implant, nasal septalplasty 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 Changes since last visit: - The patient started microdosing Tirzep atide in April and has since lost approximately one pound per week. - Her weight had been up to 160 pounds o dave the summer. - She reports associated benefits includ ing improved energy and sleep, which she attributes to vitamin B12 included in the injection, and a significant reduction in inflammation. - She has not experienced any side effec ts from the medication. Chronic Diarrhea: - The patient reports ongoing issues wit h liquid diarrhea, which occurs daily. - She uses loperamide as needed for symp allen control, such as when traveling. - She has a colonoscopy scheduled for [facility] as a follow-up for her diverticulosis, in keeping with a three-year screening interval. Bilateral Knee Osteoarthritis: - The patient manages her bilateral knee arthritis with Celebrex, which has provided better results than meloxicam, which she took previously. - She reports that since starting Tirzep atide, her knee inflammation has significantly decreased, and she is overdue for a cortisone shot but has not needed one. Depression and Anxiety: - The patient has a history of major dep ressive disorder and traumatized anxiety disorder. - She currently takes paroxetine (Paxil) . - It was recently suggested by friends t hat she may have ADHD, but she reports that she manages well, it does not interfere with her daily life, and is not seeking a formal diagnosis or treatment at this time. Health Maintenance: - A mammogram is scheduled for September; her last one in 2023 was normal but noted dense breast tissue. - Her last Pap smear was in 2022 - Her Tdap immunization is up to date fr om 2021, and she declines the influenza vaccine. - Her last eye exam was about a year ago , and another is due in early 2025. Past Medical History - Major depressive disorder - Traumatized anxiety disorder - Low HDL cholesterol - Gastroesophageal reflux disease (GERD) - Bilateral knee arthritis - Moderate diverticulosis in the sigmoid colon - History of suspected small ovarian cys t rupture Past Surgical History - Bladder stimulator placement - Nasal septoplasty Family History - Mother: Alive and healthy, has had mul tiple joint replacements. - Father: Alive, healthy, and overweight . - Brother (one): Alive and well with no health conditions. - Sisters (two): One has chronic fatigue and fibromyalgia, and the other has depression and anxiety. - Children (three): Two daughters and on e son, all are healthy. - Maternal Grandmother: Had breast cance r late in life and dementia; lived to her late 80s. - Maternal Grandfather: No significant h ealth issues; lived into his 90s. - Paternal Grandparents: Both had no sig nificant health issues and lived into their late 90s. Social History - Exercise: Engages in Top Hat three times a week. - Diet: Reports consuming a diet with lo ts of protein, water, and electrolytes. - Weight Management: Actively managing h er weight loss with medication, diet, and exercise. Health Maintenance - Patient will proceed with her schedule d mammogram in September. - Influenza vaccine was offered and decl ined by the patient. - Patient will schedule her next routine eye exam, which is due in early 2025. Review of Systems - Constitutional: Reports improved energ y, improved sleep, and weight loss. Denies abnormal hair loss. - Gastrointestinal: Reports chronic liqu id diarrhea daily but denies other digestive side effects from current medication. - Musculoskeletal: Reports significantly decreased knee inflammation and has not required recent cortisone injections. - Gynecological: Reports some pain attri buted to a suspected small ovarian cyst rupture. - Psychiatric: Denies that potential ADH D symptoms interfere with daily life. Physical Exam General: Well developed, well nourished, in no acute distress. Appears stated age. Head: Normocephalic, atraumatic. Eyes: Pupils are equal, round and reactive to light and accommodation. Conjunctivae are clear. Scleras nonicteric bilat. Vision grossly normal. Ears: TMs clear AU, EACS WNL Nose: Patent, without discharge. Neck: No carotid bruit bilat. Supple, no adenopathy or thyromegaly. Breast: Edu on SBE Lungs: Clear to auscultation bilaterally. No rales, rhonchi or wheeze noted. Good air flow in all go. Heart: Regular rate and rhythm. No murmurs, click, rubs or gallops are noted. Abdomen: Bowel sounds present in all quadrants. The abdomen is soft, nontender, with no masses or organomegaly noted. No hernias are noted. : Deferred. Reviewed recommendations for routine DATA PROCESSING MANAGER Pulses: Peripheral pulses are equal and palpable bilaterally. Extremities: No clubbing, cyanosis nor edema is noted. Neurologic: Gait and station normal. Cranial Nerves 2-12 intact. Motor strength grossly symmetrical and intact. No sensory loss. Balance normal. Skin: No rashes, ulcers, or lesions noted. Turgor is good. Skin color is good. Hair and nails are without abnormalities. Psych: Normal eye contact, affect and mood appropriate, and normal interactions. Patient is alert and appropriate to context. Results - Mammogram (2023): Normal, with dense b reast tissue noted. Labs pending Medical Decision Making The patient is a 50-year-old female presenting for her annual physical examination. She has experienced significant benefits from microdosing Tirzepatide, including weight loss, improved energy and sleep, and a notable reduction in knee inflammation, to the point of delaying the need for her typical cortisone injections. She continues to manage chronic conditions in cluding depression, anxiety, GERD, and hyperlipidemia with medication. Her chronic liquid diarrhea will be further investigated with an upcoming colonoscopy, which is appropriate given her history of diverticulosis. The possibility of ADHD was discussed at the patient's prompting, but given that she is functioning well and is not seeking treatment, a formal psychiatric evaluation is not necessary at this time. Her health maintenance screenings are appropriately scheduled. Her family history of late-onset breast cancer does not significantly increase her personal risk. The plan includes obtaining routine bloodwork today to monitor her overall health and medication effects. She will be followed up via the patient portal with the results, and she will follow up in one year for her next physical exam. Plan 1. Wellness Exam - The patient will have bloodwork drawn today to check blood count and liver function. - Results will be posted to the patient portal. - Recommend follow-up in one year for he r next physical exam, or sooner as needed. 2. Other: - Manged by outside prescriber: Tirzepat tara (Zepbound) 0.5 mg weekly injection with vitamin B12, as she is tolerating it well with positive effects on weight, energy, sleep, and inflammation. - Continue current diet high in protein, water, and electrolytes, and exercise regimen of functional training three times per week. 3. Chronic Diarrhea - Continue loperamide (Imodium) on an as -needed basis for symptom control. - Proceed with the scheduled colonoscopy on October 08 for further evaluation. 4. Bilateral Knee Osteoarthritis - Continue Celebrex as needed for knee p ain, which the patient reports is more effective than her prior medication. - Monitor for continued benefit from Tir zepatide on knee inflammation, which has delayed her need for cortisone injections. Patient Instructions - Please go for your blood tests today. We will send you a message with the results on the patient portal. - Continue to take all your current medi cations as prescribed. - Keep your appointment for your colonos copy on October 08. - Keep your appointment for your mammogr am in September. - You declined the flu shot today. - Continue with your healthy lifestyle, including your diet and exercise routine. - Please schedule a follow-up visit in o ne year for your next physical, or call us if you have any problems before then. Consent The patient provided verbal consent for the physical examination and the planned blood draw. Patient was informed and verbally consented to the use of an ambient scribe for clinic note documentation during this visit. [facility] Medical History History of mammogram (~2023) No pertinent past medical history Surgical History History of esophagogastroduodenoscopy (EGD) Hx of colonoscopy (~2021) H/O nasal septoplasty Social History (Updated 09/02/25 @ 08:06 by DOMINICK Rosas) Household Members: Family Both parents involved: No Caregiver staying overnight: No Housing: House Are you a primary care support representative to a significant other at home: No Do you presently have visiting nurse or other home services: No 75 years or older and lives alone: No Alcohol intake: current Alcohol intake frequency: former alcohol drinker Patient Tobacco Use Status: Former Tobacco user e-Cigarette/Vaping Use: Never Used Second Hand Smoke Exposure: No Use of substances other than those prescribed or required for medical reasons: No Patient : No service: No Current occupational status: employed 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 1. Little interest or pleasure in doing things: not at all 2. Feeling down, depressed, or hopeless: not at all 3. Trouble falling or staying asleep, or sleeping too much: more than half the days 4. Feeling tired or having little energy: several days 5. Poor appetite or overeating: not at all 6. Feeling bad about yourself - or that you are a failure or have let yourself or your family down: not at all 7. Trouble concentrating on things, such as reading the newspaper or watching television: not at all 8. Moving or speaking so slowly that other people could have noticed. Or the opposite - being so fidgety or restless that you have been moving around a lot more than usual: not at all 9. Thoughts that you would be better off or of hurting yourself in some way: not at all Total score: 3 Depression Screening Interpretation: Negative Depression Screening Done: Yes 91392 - PHQ-9 Billing: Yes Source: Developed by Drs. Dami Tovar, Janelle Perales, Rinku De Paz and colleagues, with an educational rené from [employer]. Thrive Questionnaire Date Thrive assessed: 09/02/25 I am a: Patient What is your living situation today?: I have a steady place to live Within the past 12 months, did the food you bought not last and you didn't have the money to get more?: Never true Within the past 12 months, did you worry whether your food would run out before you got money to buy more?: Never true Do you have trouble paying for medicines?: No Do you have trouble getting transportation to medical appointments?: No Do you have trouble paying your heating and electricity bill?: No Do you have trouble taking care of your child, family member or friend?: No Do you have trouble with day-to-day activities such as bathing, preparing meals, shopping, managing finances, etc.?: No Are you currently unemployed and looking for a job?: No Are you interested in more education?: Yes Please select the resources that you would like help with: Education Currently or been in a relationship where the following occur: No concerns reported THRIVE Score: 0 AUDIT C Alcohol Use Questionnaire (AUDIT-C) 1. How often do you have a drink containing alcohol?: Never 3. How often do you have six or more drinks on one occasion?: Never Total Score: 0 Score Reviewed/Action Taken: Yes CATY-7 AMB Questionnaire CATY-7 Date CATY - 7 assessed: 09/02/25 Feeling nervous, anxious, or on edge: 0 = Not at all Not being able to stop or control worryin = Not at all Worrying too much about different things: 1 = Several days Trouble relaxin = Several days Being so restless that it is hard to sit still: 1 = Several days Becoming easily annoyed or irritable: 1 = Several days Feeling afraid as if something awful might happen: 0 = Not at all Total CATY-7 score (0-4 normal; 5-9 mild; 10-14 moderate; 15-21 severe): 4 Source: Developed by Drs. Dami Tovar, Janelle Perales, Rinku De Paz and colleagues, with an educational rené from [employer]. CATY-7 Assessment Billing CATY-7 Assessment Tool: CATY-7 Assessment 34390 Physical exam (Primary Care) Vital Signs: Last Vital Signs Temp 97.9 F 09/02/25 08:07 Pulse 86 09/02/25 08:07 Resp 16 09/02/25 08:07 BP 110/77 09/02/25 08:07 Pulse Ox 100 09/02/25 08:07 Oxygen Delivery Method Room Air 09/02/25 08:07 BMI result Body Mass Index 25.8 Tobacco/Smoking Status: Tobacco use Status Tobacco use date assessed 09/02/25 09/02/25 08:06 Patient Tobacco Use Status Former Tobacco user 09/02/25 08:06 e-Cigarette/Vaping Use Never Used 09/02/25 08:06 Depression Screening Interpretation: Negative Thrive Assessment: Date of Thrive Assessment Date Thrive assessed 12/10/24 09/02/25 08:00 Currently or been in a relationship where the following occur: No concerns reported Coding Level of Care Code Est Pt Prev Care 40-64y(26360) Add On Preventative Visit Only Diagnoses Adult general medical exam Z00.00 Laboratory tests ordered as part of a complete physical exam (CPE) Z00. Influenza vaccination declined Z28.21 Long-term (current) use of injectable non-insulin antidiabetic drugs Z79.85 Low HDL (under 40) E78.6 High triglycerides E78.1 History of Papanicolaou smear of cervix Z92.89 Additional Codes PHQ-9 - 94524 - PHQ-9 Billing: Yes ([id number]) CATY-7 Assessment Billing - CATY-7 Assessment Tool: CATY-7 Assessment 43868 ([id number]) Assessment & Plan Assessment & Plan (1) Adult general medical exam: Onset Date: ~09/02/25 Code(s): Z00.00 - Encounter for general adult medical examination without abnormal findings Category: Medical (2) Laboratory tests ordered as part of a complete physical exam (CPE): Code(s): Z00. - Encounter for general adult medical examination without abnormal findings Category: Medical (3) Influenza vaccination declined: Onset Date: ~09/02/25 Code(s): Z28.21 - Immunization not carried out because of patient refusal Category: Medical (4) Long-term (current) use of injectable non-insulin antidiabetic drugs: Onset Date: ~2024 Comment: wt loss zepbound managed by outside prescriber Code(s): Z79.85 - Long-term (current) use of injectable non-insulin antidiabetic drugs Category: Medical (5) Low HDL (under 40): Code(s): E78.6 - Lipoprotein deficiency Category: Medical (6) High triglycerides: Code(s): E78.1 - Pure hyperglyceridemia Category: Medical (7) History of Papanicolaou smear of cervix: Onset Date: ~2022 Code(s): Z92.89 - Personal history of other medical treatment Category: Medical Plan , Orders: Orders Complete Blood Count no Diff Today Z00.00 - Encounter for general adult medical examination without abnormal findings Comprehensive Met. Panel Today Z00.00 - Encounter for general adult medical examination without abnormal findings Lipid Panel Today Z00.00 - Encounter for general adult medical examination without abnormal findings Microalbumin, Random (w Creat) Today Z00.00 - Encounter for general adult medical examination without abnormal findings Vitamin B12 and Folate Today Z00.00 - Encounter for general adult medical examination without abnormal findings Vitamin D 25-OH Total Today Z00.00 - Encounter for general adult medical examination without abnormal findings Hemoglobin A1c Today Z00.00 - Encounter for general adult medical examination without abnormal findings Patient Instructions: Health screenings for women You should visit your health care provider from time to time, even if you are healthy. The purpose of these visits is to: Screen for medical issues Assess your risk for future medical problems Encourage a healthy lifestyle Update vaccinations and other preventive care services Help you get to know your provider in case of an illness Information Even if you feel fine, you should still see your provider for regular checkups. These visits can help you avoid problems in the future. For example, the only way to find out if you have high blood pressure is to have it checked regularly. High blood sugar and high cholesterol levels also may not have any symptoms in the early stages. A simple blood test can check for these conditions. There are specific times when you should see your provider or receive specific health screenings. The [place] Preventive Services Task Force publishes a list of recommended screenings. Below are screening guidelines for women ages 18 to 39. BLOOD PRESSURE SCREENING Your blood pressure should be checked at least once every 3 to 5 years if: Your blood pressure is in the normal range (top number less than 120 mm Hg and bottom number less than 80 mm Hg) You don't have risk factors for high blood pressure Ask your provider if you need your blood pressure checked more often if: The top number is 120 to 129 mm Hg or the bottom number is 70 to 79 mm Hg You have diabetes, heart disease, kidney problems, are overweight, or have certain other health conditions You have a first-degree relative with high blood pressure You are Black You had high blood pressure during a If the top number is 130 mm Hg or greater or the bottom number is 80 mm Hg or greater, this is considered stage 1 hypertension. Schedule an appointment with your provider to learn how you can reduce your blood pressure. Watch for blood pressure screenings in your area. Ask your provider if you can stop in to have your blood pressure checked. BREAST CANCER SCREENING Experts do not agree about the benefits of breast self-exams in finding breast cancer or saving lives. Talk to your provider about what is best for you. A screening mammogram is not recommended for most women under age 40. Your provider may discuss and recommend mammograms, MRI scans, or ultrasounds if you have an increased risk for breast cancer, such as: A mother or sister who had breast cancer at a young age (most often starting screening earlier than the age the close relative was diagnosed) You carry a high-risk genetic marker CERVICAL CANCER SCREENING Cervical cancer screening should start at age 21 years unless your provider advises otherwise. After the first test: Women ages 21 through 29 should have a Pap test every 3 years. Exoprts do not agree on whether HPV testing is recommended for this age group. Women ages 30 through 65 should be screened with either a Pap test every 3 years or the HPV test every 5 years or both tests every 5 years (called cotesting ). Women who have been treated for precancer (cervical dysplasia) should continue to have Pap tests for 20 years after treatment or until age 65, whichever is longer. If you have had your uterus and cervix removed (total hysterectomy), and you have not been diagnosed with cervical cancer or precancer (high grade cervical neoplasia), you do not need cervical cancer screening. CHOLESTEROL SCREENING Cholesterol screening should begin at: Age 45 for women with no known risk factors for coronary heart disease Age 20 for women with known risk factors for coronary heart disease Repeat cholesterol screening should take place: Every 5 years for women with normal cholesterol levels More often if changes occur in lifestyle (including weight gain and diet) More often if you have diabetes, heart disease, kidney problems, or certain other conditions DIABETES SCREENING You should be screened for diabetes starting at age 35 and then repeated every 3 years if you have no risk factors for diabetes. Screening may need to start earlier and be repeated more often if you have other risk factors for diabetes, such as: You have a first degree relative with diabetes. You are overweight or have obesity. You have high blood pressure, prediabetes, or a history of heart disease. Screening for diabetes should be done if you are planning to become and you are overweight and have other risk factors such as high blood pressure. DENTAL EXAM Go to the dentist once or twice every year for an exam and cleaning. Your dentist will evaluate if you need more frequent visits. EYE EXAM Have an eye exam every 5 to 10 years before age 40. If you have vision problems, have an eye exam every 2 years or more often if recommended by your provider. You should have an eye exam that includes an examination of your retina (back of your eye) at least every year if you have diabetes. IMMUNIZATIONS Commonly needed vaccines include: Flu shot: get one every year. COVID-19 vaccine: ask your provider what is best for you. Tetanus-diphtheria and acellular pertussis (Tdap) vaccine: have one at or after age 19 as one of your tetanus-diphtheria vaccines if you did not receive it as an adolescent. Tetanus-diphtheria: have a booster (or Tdap) every 10 years. Varicella vaccine: receive 2 doses if you never had chickenpox or the varicella vaccine. Hepatitis B vaccine: receive 2, 3, or 4 doses, depending on your exact circumstances. Measles, mumps, and rubella (MMR) vaccine: receive 1 to 2 doses if you are not already immune to MMR. Your provider can tell you if you are immune. Ask your provider about the human papillomavirus (HPV) vaccine if: You have not received the HPV vaccine in the past You have not completed the full vaccine series (you should catch up on this shot) Ask your provider if you should receive other immunizations if you have certain health problems that increase your risk for some diseases such as pneumonia. INFECTIOUS DISEASE SCREENING Women who are sexually active should be screened for chlamydia and gonorrhea up until age 25. Women 25 years and older should be screened for chlamydia and gonorrhea if at high risk. Screening for hepatitis C: All adults ages 18 to 79 should get a one-time test for hepatitis C. people should be screened at every . Screening for human immunodeficiency virus (HIV): All people ages 15 to 65 should get a one-time test for HIV. Depending on your lifestyle and medical history, you may also need to be screened for infections such as syphilis and HIV, as well as other infections. PHYSICAL EXAM All adults should visit their provider from time to time, even if they are healthy. The purpose of these visits is to: Screen for disease Assess your risk of future medical problems Encourage a healthy lifestyle Update your vaccinations and other preventive care services Maintain a relationship with a provider in case of an illness Your height, weight, and BMI should be checked at every exam. During your exam, your provider may ask you about: Depression and anxiety Diet and exercise Alcohol and tobacco use Safety issues, such as using seat belts, smoke detectors, and intimate partner violence Your medicines and risk for interactions SKIN SELF-EXAM Your provider may check your skin for signs of skin cancer, especially if you're at high risk, such as if you: Have had skin cancer before Have close relatives with skin cancer Have a weakened immune system OTHER SCREENING Talk with your provider about colon cancer screening if you have a strong family history of colon cancer or polyps, or if you have had inflammatory bowel disease or polyps yourself. Routine bone density screening of women under 40 is not recommended.
--- OUTSIDE RECORDS SUMMARY | 2025-09-02 08:00 | XMS_ITS | Data Portability ---
Author Organization [facility], [facility] Address [address] [place] [address] Care Team Providers Care Auto Camp Attendant Name Role Phone Mukund Bragg Primary Care Provider Assessment Encounter Date Assessment Date Assessment LastModified by Organization Details LastModified Time 12/30/2024 12/30/2024 Imaging: Imaging ordered, independently reviewed and interpreted by Varun Loo MD reveals the following findings: XR Knee Right Knee: Four views of the knee were obtained including AP, muñoz, sunrise, and lateral views. Minimal DJD present. Minimal evidence of changes consistent with osteoarthritis including joint space narrowing, subchondral sclerosis, and osteophyte formation. There is some slight bone spur formation in the patellofemoral joint Alignment: Neutral Impression: Right knee patellofemoral joint pain syndrome Plan: And had a very lengthy discussion with Mary Kay today. We reviewed her x-rays as well as her CT, she cannot have an MRI because she has an implanted device that is not MRI safe. I advised her that the cartilage in her knee joint looks quite good, and I do not see much in the way of significant signs of arthritis. Given her symptoms and examination I think she is most likely experiencing patellofemoral pain syndrome. I explained to the underlying mechanics of this condition and we looked at some diagrams of lower extremity alignment particularly in regards to the Q angle, and I explained to her how the majority of the quadriceps muscle has a slight lateralizing force on the patella which is counteracted by the VMO portion of the quadricep muscle. I think the majority of her pain is likely related to this patellofemoral dynamic, I would not expect that to improve with knee replacement surgery or partial joint replacement surgery. I advised her that I definitely recommended against surgery at this point, but I do think she would fit enormously from a serious and full course of physical therapy for strengthening of her VMO bilaterally. She was interested in trying this, we will have her go to her [place] location as this is relatively close to her home in [place]. I am prescribing this patient oral Celebrex. She will try taking this in place of the meloxicam she is currently using. We had a legnthy discussion today regarding the nature of this medication including its indications, contradindications, risks, and potential side effects. The patient is to take this medication once daily in the morning and is specifically instructed to take it with food in order to reduce the risk of gastorintestional upset. I explained to the patient that this medication often requires a couple of days before it reaches steady-state within the blood and as such the patient may not experience relief with this medication until after a few days of taking it. I also advised the patient that they should contact their primary care provider to notify them that I have started this medication, as prolonged use of oral anti-inflammatory pain medications should be paired with routine assessments of kidney function. She will follow-up with me in about 3 months for a repeat clinical assessment of her symptoms [email or web address] Not available 12/30/2024 14:11:03 Plan of Treatment Reminders Order Date Submit Date Provider Name Organization Details Last Modified By Last Modified Time Details Appointments None record ed. Lab renal functi on panel, serum 2024 10:59: 29 025 Konstantin Riley PA-C [facility] [address] [address], [place], [address], Konstantin Riley PA-C 12:48:21 CBC w/ auto diff 2024 10:59: 29 025 Konstantin Riley PA-C [facility] [address], [place], [address], Konstantin Riley PA-C 12:48:21 Referral physic al therap ist referr al 2024 13:58: 16 025 Varun Loo MD [facility] [address] [place], [address], ALYSSA MESSENGER 10:50:56 Procedures None record ed. Surgeries None record ed. Imaging XR, knee, 4 or more view 2024 13:27: 32 025 MD [facility] [address], [place], [address], ALYSSA MESSENGER 5 10:50:56 MedicationOrders None record ed. VaccineOrders None record ed. Patient TargetsNo targets recorded. Patient InstructionsNo instructions recorded. Reason for Referral Physical Therapist Referral for Patellofemoral syndrome of right knee Targeted VMO strengthening R knee Referring Physician: Varun Loo, Orthopedic Surgery, Encounter Date: 12/30/2024 Results Created Date Observation Date Name Description Value Unit Range Abnormal Flag Specimen Type Note LastModifiedBy Organization Detail LastModifiedTime 12/30/2024 12/30/2024 knee 4 view [email or web address]=[email or web address]%1DRQhqKzjfq3oicc%5Ai8BXx0 huTpkR0sRiBLkxpAm3UlRZFpShkKTO0cRuXFlfv66c2471WL8Lxng6LOPPoUtBchMhY Not Available [facility] , [address] , [place] , [address], , 12/30/2024 13:38:48 12/30/2024 12/30/2024 knee 4 view [email or web address]=oeRdAvaPQ0iRvqOCw8t%1HXVlfMyeps6qluv%0Io7HQj1 noUavE4gYfPYrrtSp7TyYXRcTluYGF3yXrISzxh75j6017LG9Nxcm4DHGOkDbOgnMkE Not Available [facility] , [address] , [place] , [address], [place] , 12/30/2024 13:38:50 Result Notes Documentation Provider Name and Address Organization Details Recorded Time Xr, Knee, 4 Or More View : [email or web address] Encrypted=krTsYvfXO4sMutS Uv6g%0RRFstEuhvk0uwjc%2Fg 1QHr6caXbbF0pZvZCcfxHt0Hz UQUyEfwYST0zFgMShjq06e533 3JL8Mxtu9ZZVHdEwEfcHzK Not Available [facility] 12/30/2024 13:38: 48 Xr, Knee, 4 Or More View : [email or web address] Encrypted=fcIuXzrGJ5gYkrY Uv6g%8MFJttAczqd4fqbg%2Fg 6QHc1juMxzP5fByAUixiVw3Xq FNQhExkDMG2eKpYXzov37i033 7BZ3Bhnw7ZYCVqOqMchXtD Not Available [facility] 12/30/2024 13:38: 50 Problems Name Problem SNOMED Code Status Onset Date Resolution Date Notes Provider Name and Address Organization Details Recorded Time Patellofemo ral syndrome of left knee 9720992757414 107 Active 2023 MARNIE armenta [facility] 4 09:03:27 Osteoarthri tis of left patellofemo ral joint 2326559761514 9102 Active 2023 MARNIE armenta [facility] 4 09:04:31 Pain of knee region 8350049198 Active 2024 Neha armenta [facility] 5 13:26:31 Patellofemo ral syndrome of right knee 6385846935632 103 Active 2024 Neha armenta [facility] 5 13:56:53 Problem Notes None recorded. Procedures Surgical History Date Name Laterality Status Provider Name and Address Organization Details Recorded Time 10/29/2024 Sports Knee 4&1 completed Konstantin Riley PA-C [address], [place], [address], [place] - [facility] 10/29/2024 15:49:49 Imaging Results Imaging Date Name Status LastModifiedBy Organiza tion Detail LastModifiedTime 12/30/2024 knee 4 view completed Not Available [facility] , [address] , [place] , [address], [place] , 12/30/2024 13:38:48 12/30/2024 knee 4 view completed Not Available [facility] , [address] , [place] , [address], [place] , 12/30/2024 13:38:50 Procedure Notes None recorded. Medical Equipment None Reported. Medications Name Authored On Sig Start Date Stop Date Status Note Indication Fill Status Repeat Number Dispense Quantity LastModified by Organization Details LastModified Time parox etine 10 mg table t 5 13:18:26 TAKE 1 TABL ET BY MOUT H EVER Y DAY active Not Available Not availab le 0 Not Available Not Available kathya - External Data Service - prod 12/30/2024 13:18:26 trazo done 50 mg table t 5 13:18:26 TAKE HALF A TAB BY MOUT H AT [facility] NEED ED FOR SLEE P active Not Available Not availab le 0 Not Available Not Available kathya - External Data Service - prod 12/30/2024 13:18:26 Fiber (calc ium polyc arbop hil) 625 mg table t 5 13:18:27 TAKE ONE TABL ET BY MOUT H EVER Y DAY active Not Available Not availab le 0 Not Available Not Available kathya - External Data Service - prod 12/30/2024 13:18:27 fenof ibrat e 54 mg table t 5 13:23:15 1 tabl et ever y day by oral rout e. active Not Available Not availab le 0 Not Available Neha Reina [facility] 12/30/2024 13:23:15 hydro xyzin e HCl 25 mg table t 5 13:23:15 1 tabl et as need ed by oral rout e. active Not Available Not availab le 0 Not Available Neha Reina [facility] 12/30/2024 13:23:15 omepr azole 20 mg capsu le,de layed relea se 5 13:23:15 1 caps ule ever y day by oral rout e. active Not Available Not availab le 0 Not Available Neha Nuno [facility] 12/30/2024 13:23:15 amoxi cilli n 875 mg-po tassi um clavu lanat e 125 mg table t 5 13:18:29 TAKE ONE TABL ET BY JENNIFER MOLINA E A DAY X 10 DAYS 12/30 aborted Not Available Not availab le 0 Not Available Neha Nuno [facility] 12/30/2024 13:25:00 noret hindr one aceta te 1 mg-et hinyl estra diol 20 mcg table t 5 13:18:28 TAKE ONE TABL ET BY JENNIFER Rodarte DAY 12/30 aborted Not Available Not availab le 0 Not Available Neha Nuno [facility] 12/30/2024 13:25:12 parox etine HCl 5 13:23:15 12/30 aborted Not Available Not availab le 0 Not Available Neha Reina [facility] 12/30/2024 13:25:20 iprat ropiu m bromi de 21 mcg (0.03 %) nasal spray 5 13:42:06 USE 1-2 SPRA YS TO EACH NOST RIL 3 TIME S A DAY NEED ED RUNN Y NOSE . active Not Available Not availab le 0 Not Available Not Available kathya - External Data Service - prod 01/18/2025 13:42:06 melox icam 15 mg table t 5 07:53:10 TAKE 1 TABL ET BY MOUT H EVER Y DAY AFTE R MEAL S FOR PAIN complet ed Pain of right knee joint Not availab le 1 Not Available Not Available [facility] 04/06/2025 12:17:27 celec oxib 200 mg capsu le 07:59:36 TAKE 1 CAPS ULE BY JENNIFER White EVER Y DAY complet ed Disorder of right lower extremity Not availab le 6 Not Available Not Available [facility] 08/24/2025 17:12:28 Vitals Date Recorded Body height Body mass index (BMI) Body weight Provider Name and Address Organization Details Last Updated DateTime 10/29/2024 157.48 cm 27.4 kg/m2 87131.86 g Isabela Lam [facility] 10/29/2024 10:31:17 Date Recorded Body height Body mass index (BMI) Body weight Provider Name and Address Organization Details Last Updated DateTime 12/30/2024 160.66 cm 26.7 kg/m2 38615.76 g Neha Reina [facility] at [facility] 12/30/2024 13:23:31 Social History Question Answer Notes LastModified by Organizat ion Details LastModified Time Tobacco Smoking Status Former Smoker Neha Reina [facility] at [facility] 12/30/2024 13:25:45 What Is Your Level Of Alcohol Consumption? None Neharaul Reina [facility] beds at the [facility] 12/30/2024 13:25:45 When did you quit smoking? 11-15 years since last cigarette Neha Reina [facility] beds at the [facility] 12/30/2024 13:25:45 What is your relationship status? Neha Reina [facility] beds at the [facility] 12/30/2024 13:25:47 Social History Observation Description Date Observed Sex Unknown 01/19/2025 Legal Sex Female Status Not (finding) 09/02/20 25 No social history survey screeners recorded No social history SDOH screeners recorded Functional Status Question Answer Note LastModified by Organizat ion Details LastModified Time Do you or have you ever used any other forms of tobacco or nicotine? No Neha Reina [facility] beds at the [facility] 12/30/2024 13:25:45 What is your level of alcohol consumption? None Neha Reina [facility] 12/30/2024 13:25:45 Do you use any illicit or recreational drugs? No Neha Reina [facility] 12/30/2024 13:25:45 No Functional Screening assessment recorded No Functional SDOH screeners recorded Mental Status None recorded. No Mental Screening assessment recorded No Mental SDOH screeners recorded Family History Nothing Reported. Medical History Condition Response Allergies/Hayfever N Coronary Artery Disease N Breathing or lung disorders N Anxiety/Depression N Emphysema N Nerve Disorders N Thyroid Problems N COPD N Pacemaker N Kidney/Bladder Problems N Anemia N Vascular Disease N Heart Trouble N Heart Attack ([place]) N Gastrointestinal Disease N Cholesterol N Diabetes N Autoimmune disease N Inflammatory Joint disease N Bleeding Disorder N Orthotics N Seizures/Epilepsy N Arthritis N Blood Clot N AIDS/HIV N Congestive Heart Failure (CHF) N Acid Reflux (GERD) N Cancer N Stroke N Asthma N Circulation Problems N Peripheral Vascular Disease N Sleep Apnea N Hepatitis N Heart Disease N Rheumatoid Arthritis N Pulmonary Embolism N Arrhythmia N Headaches N Fibromyalgia N Hypertension N Osteoporosis N Gynecological HistoryNo gynecological history recorded. Obstetrics History GPAL:G 0 P 0 0 0 0 Past Encounters Encounter ID Performer Location Encounter Start Date Encounter Closed Date Diagnosis/Indication Diagnosis SNOMED-CT Code Diagnosis ICD10 Code Diagnosis IMO Codes Diagnosis Note [id number] JACQUE Gonzalez [address] [place] [address] 10/29/2024 10:04:08 11/18/2024 10:38:23 Patellofemoral syndrome of bilateral knees 0154208783 8513370 M22.2X1 M22.2X2 [id number] MD [facility] [address] [place] [address] 12/30/2024 13:16:57 01/05/2025 10:50:56 Pain of knee region 5637515922 M25.561 32407953 Patellofem oral syndrome of right knee 6976073105 345463 M22.2X1 39575419 Patellofem oral syndrome of left knee 8599211283 436002 M22.2X2 Health Concerns Section Related Observation LastModified by Organization [facility] LastModified Time None Recorded Concern Status LastModified by Organization Details LastModified Time None Recorded SDOH Concern Status LastModified by Organization [facility] LastModified Time None Recorded Advance Directives Directive None Recorded Payers Insurance Date Sequence Insurance Name Policy Number Policy Barlow Covered Member ID Barlow Member ID Guarantor Name 01/05/2025 1 [place] [facility] ([facility]PO[facility] [id number] A Errol Huber Elisabeth III [id number] Mary Kay Brambila Elisabeth Notes Date Note Type Note Provider Name and Address Organization Details Recorded Time 5 text/html I am seeing the patient today under the supervision of Dr. Penn who was available but who did not see the patient. HPI: Mary Kay returns for follow-up evaluation regarding bilateral knee pain right worse than the left. She was seen over a year ago and diagnosed with patellofemoral arthritis. She had CT scan which showed subchondral cystic formation of the patella consistent with advanced arthritis. She is noting significant grinding and crepitus behind both kneecaps which is bothersome with bending activities. She struggles on stairs. More recently has had some clicking which concerned her. She has been using meloxicam for over 2 years. Past family, medical, social history and review of systems has been reviewed, updated and signed by me and is located in the patient's chart. Examination: The patient is well appearing and in no apparent distress. Alert and oriented x3. Gait is symmetric. Patient arises from sitting without difficulty. Ambulates with normal nonantalgic gait. Audible and palpable crepitus with double and single-leg squatting maneuvers. Pain reproduced on the right with squatting. There is no joint effusion of either knee. Normal motion strength and stability. Impression: Patellofemoral arthritis bilateral knees with symptoms on the right Plan: We discussed treatment options. She is potentially a candidate for patellofemoral partial knee replacement. I recommended a consultation with Dr. Loo to discuss. Continue to take meloxicam as needed but I recommended doing laboratory testing for NSAID workup. BUN/creatinine kidney functions were ordered along with CBC. Offered and recommended a intra-articular cortisone injection today for both knees which was performed. Patient tolerated procedures well. We also discussed the role of viscosupplementation and I believe she would be an excellent candidate for gel injection. We will seek to get authorization for hyaluronic acid at this time. Konstantin Riley PA-C [address], [place], [address], [facility] 10/29/2024 15:50:42 5 text/html ROS as noted in the HPI History of present illness:Mary Kay is a extremely friendly and pleasant 49-year-old female who presents today for evaluation for her right knee. She has a long-standing history of right knee pain that has been present for many years and has been gradually worsening. The pain is primarily anteriorly based, mainly in the kneecap. 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 She states that she had a corticosteroid injection which helped for a short area but did not have loud lasting benefit, she tried to get a gel injection but this was denied by her insurance. She did a course of physical therapy about a year ago but does not really recall whether this helped significantlyPast family, medical, social history and review of systems has been reviewed and updated, and is located in the patient s chart. Varun Loo MD [address], [place], [address], [facility] 12/30/2024 14:11:21 Care Team Name Role Member ID Specialty Address Phone MUKUND BRAGG NP Primary Care Provider [phone] [facility], [place], [place] OBGyn Episode No OBEpisode recorded.
--- OUTSIDE RECORDS SUMMARY | 2025-09-02 08:00 | XMS_ITS | Patient Health Record ---
Author Organization [facility] Address [address] [place] [address] Care Team Providers Care Fold Skiver Name Role Phone Sourav Calderón Unavailable [phone] Isamar Mckeon DPM Unavailable Unavailable Reason For Referral No Information Medications Medication SIG (Take, Route, Frequency, Duration) Notes Start Date End Date Status Doxycycline Monohydrate 100 MG (Prior Auth: Rx Ref#:[id number]) Oral; Duration: 21 Not-Taking Custom Orthotics as directed 06/10/2019 Active Night Splint AFO - L1930 as directed 06/10/2019 Active Tylenol Not-Taking Advil Not-Taking ZyrTEC Allergy 10 MG 1 tablet Orally Onc e a day; Duration: 30 day(s) 06/03/2019 Active Fluticasone Propionate 50 MCG/ACT (Prior Auth: Rx Ref#:[id number]) Nasal; Duration: 30 Not-Taking Social History Tobacco Use: Social History Observation Description Date Details (start date - stop date) Former Smoker NA - NA Tobacco Use/Smoking Question Answer Notes Are you a: former smoker Additional Findings: Tobacco User Modera te cigarette smoker (10-19 cigs/day) Additional Findings: Tobacco Non-User Cu rrent non-smoker,Ex-cigarette smoker,Ex-moderate cigarette smoker (10-19/day) Alcohol Screen Question Answer Notes Did you have a drink containing alcohol in the p ast year? No Points 0 Interpretation Negative Tobacco use other than smoking: Question Answer Notes Are you an other tobacco user? No Problems Problem Type SNOMED Code ICD Code Onset Dates Problem Status W/U Status Risk Notes Problem Acquired hallux valgus (16493020) Hallux valgus (acquired), left foot (M20.12) Active confirmed Problem Acquired hallux valgus (71453902) Hallux valgus (acquired), right foot (M20.11) Active confirmed Problem Acquired hammer toe of right foot (6274888241432 105) Other hammer toe(s) (acquired), right foot (M20.41) Active confirmed Problem Acquired hammer toe of left foot (0623975748276 103) Other hammer toe(s) (acquired), left foot (M20.42) Active confirmed Plan Of Treatment Pending Test Test Name Order Date X ray : Foot, left 3V 06/10/2019 X ray : Foot, right 3V 06/10/2019 Insurance Providers Payer Name Payer Address Payer Phone Subscriber Number Group Number Insured Name Patient Relationship to Insured Coverage Start Date Coverage End Date [facility] Others [address] [place] [address] [phone] [id number] Mary Kay Barber Self - patient is the insured Medical (General) History Medical History History ICD Code Anxiety Broken bones Depression Headaches/Migraines Psychiatric disorder chronic sinusitis Chicken pox Surgical History Surgery Date(Month/Year) tonsillectomy 1986 section 2001,2004,2013 cystectomy 2009 neurotransmitter implant 2016
[2025-09-02 08:07] VITALS: BP 110/77; PULSE 86; RESP 16; TEMP 36.6; O2SAT 100; BMI 25.8
== END 2025-09-02 08:27 | disposition home or self-care (01) ==
LOC: HO.HMCFM 07:57
PROVIDERS: PCP Nurse Practitioner Family; Visit Provider Nurse Practitioner Family
DX: Z00.00 Encounter for general adult medical examination without abnormal findings (principal); Z28.21 Immunization not carried out because of patient refusal; Z79.85 Long-term (current) use of injectable non-insulin antidiabetic drugs; E78.6 Lipoprotein deficiency; E78.1 Pure hyperglyceridemia; Z92.89 Personal history of other medical treatment

== ENCOUNTER 2025-09-02 07:57 | Outpatient (REF) | payer BC, SELFPAY ==
[2025-09-02 11:47] LABS: Hematocrit 38.2 % (37.0-47.0); Hemoglobin 13.2 g/dl (12.0-16.0); Mean Corpuscular HGB Conc 34.6 g/dl (31.0-35.0); Mean Corpuscular Hemoglobin 29.3 pg (27.0-33.0); Mean Corpuscular Volume 84.9 fL (80.0-98.0); NRBC Abs Auto 0.000 X10*3/uL (0.0-0.012); NRBC Pct Auto 0.0 /100WBC (0.0-0.2); Platelet Count 352 X10*3/uL (160-400); Red Blood Count 4.50 X10*6/uL (4.20-5.50); White Blood Count 5.8 X10*3/uL (4.8-10.8)
[2025-09-02 12:12] LABS: Alanine Aminotransferase 18 U/L (0-31); Albumin Level 4.6 g/dL (3.5-5.0); Alkaline Phosphatase 57 U/L (39-117); Anion Gap 13 (12-20); Aspartate Amino Transferase 30 U/L (5-31); Blood Urea Nitrogen 22 mg/dL (9-16); Calcium 9.4 mg/dL (8.4-10.2); Carbon Dioxide 22 mmol/L (22-29); Chloride 109 mmol/L (96-108); Cholesterol 183 mg/dL (<200); Estimated Glomerular Filt Rate 53; HDL Cholesterol 37 mg/dL (>40); Potassium 4.1 mmol/L (3.3-5.1); Sodium 140 mmol/L (135-145); Total Protein 7.5 g/dL (6.5-8.0); Triglycerides 152 mg/dL (<150)
[2025-09-02 12:37] LABS: Folate > 20.0 ng/mL (> or = 4.0); Vitamin B12 1543 pg/mL (200-900)
[2025-09-02 12:44] LABS: Microalbum/Creatinine Ratio Ur 8.7 ug/mg cr (<30)
== END 2025-09-02 07:58 | disposition home or self-care (01) ==
LOC: HO.WFDLDS 07:57
PROVIDERS: PCP Nurse Practitioner Family; Visit Provider Nurse Practitioner Family
DX: Z00.00 Encounter for general adult medical examination without abnormal findings (principal); Z13.31 Encounter for screening for depression; Z13.39 Encounter for screening examination for other mental health and behavioral disorders; E78.1 Pure hyperglyceridemia; Z79.85 Long-term (current) use of injectable non-insulin antidiabetic drugs
CPT/HCPCS: 36415; 80053; 80061; 82043; 82306; 82570; 82607; 82746; 83036; 85027; 96127